=== PATIENT | female | born 1960 | race African-American/Black ===

== ENCOUNTER 2020-09-08 19:28 | Observation (INO) ==
[2020-09-08 19:58] LABS: Basophils % 0.7 % (0.0-0.8); Eosinophils % 0.7 % (0.00-10.9); Hematocrit 40.3 VOL% (35.7-47.0); Hemoglobin 13.2 GM/DL (12.0-16.0); Immature Granulocytes % 0.2 %; Immature Granulocytes Absolute 0.01 #; Lymphocytes # 1.5 10*3/uL (1.4-4.0); Lymphocytes % 34.4 % (21.3-54.2); Mean Corpuscular HGB Conc 32.8 GM/DL (32-36); Mean Corpuscular Volume 88.4 FL (87-102); Monocytes # 0.5 10*3/uL (0.11-0.8); Monocytes % 10.9 % (1.7-12.7); Neutrophils % 53.1 % (38.7-73.9); Platelet Count 219 T/CUMM (130-400); Red Blood Count 4.56 MC/CUMM (3.8-5.5); Red Cell Distribution Width 14.8 % (9.3-17.3); White Blood Count 4.4 T/CUMM (4-12)
[2020-09-08 20:08] LABS: PT Patient Result 10.6 SECS (9.8-11.9); Partial Thromboplastin Time 30.6 SECS (23.9-33.8)
[2020-09-08] MEDS ORDERED: ONDANSETRON 4 MG/2 ML VIAL IV ONE (20:14)
[2020-09-08] MEDS ORDERED: cloNIDine 0.1 MG TABLET PO STA (20:14)
[2020-09-08] MEDS ORDERED: MORPHINE 4 MG/1 ML VIAL IV STA (20:14)
[2020-09-08 20:26] LABS: Albumin 2.2 G/DL (3.4-5.0); Bilirubin,Total 0.4 MG/DL (0.2-1.0); Calcium 8.4 MG/DL (8.5-10.1); Osmolality,Calculated 286.1 MOS/KG (273-304); Potassium 3.6 MMOL/L (3.5-5.1); Total Protein 6.5 G/DL (6.4-8.3)
[2020-09-08] MEDS ORDERED: niCARdipine INJ 25 MG in SODIUM CHLORIDE 0.9% 240 ML IV PRN (21:12)
[2020-09-08] MEDS ORDERED: HydrOXYzine PAMOATE 25 MG CAPSULE PO PRN (22:18)
[2020-09-08] MEDS ORDERED: ACETAMINOPHEN 500 MG TABLET PO STA (22:51)
[2020-09-08] MEDS ORDERED: carvediloL 12.5 MG TABLET PO SCH (23:00)
[2020-09-08] MEDS ORDERED: DOCUSATE SODIUM 100 MG CAPSULE PO PRN (23:19)
[2020-09-08] MEDS ORDERED: ACETAMINOPHEN 325 MG TABLET PO PRN (23:19)
[2020-09-08] MEDS ORDERED: DEXTROSE 50% 25 GM/50 ML VIAL IV PRN ×2 (23:19)
[2020-09-08] MEDS ORDERED: hydrALAZINE 20 MG/1 ML VIAL IV PRN (23:19)
[2020-09-08] MEDS ORDERED: ONDANSETRON 4 MG/2 ML VIAL IV PRN (23:19)
[2020-09-08] MEDS ORDERED: GLUCAGON 1 MG VIAL IM PRN ×2 (23:19)
[2020-09-09] MEDS: ASPIRIN 325 MG TABLET PO SCH ×3 (01:17→21:20)
[2020-09-09] MEDS: GABAPENTIN 300 MG CAPSULE PO SCH ×3 (01:17→21:20)
[2020-09-09] MEDS: glipiZIDE 10 MG TABLET PO SCH ×3 (01:17→21:20)
[2020-09-09 05:51] LABS: Eosinophils # 0.1 10*3/uL (0.0-0.87); Eosinophils % 2.6 % (0.00-10.9); Hematocrit 40.1 VOL% (35.7-47.0); Hemoglobin 13.1 GM/DL (12.0-16.0); Immature Granulocytes % 0.2 %; Immature Granulocytes Absolute 0.01 #; Lymphocytes # 2.2 10*3/uL (1.4-4.0); Lymphocytes % 51.9 % (21.3-54.2); Mean Corpuscular HGB Conc 32.7 GM/DL (32-36); Mean Corpuscular Volume 90.1 FL (87-102); Mean Platelet Volume 10.5 FL (9.6-12.0); Monocytes # 0.6 10*3/uL (0.11-0.8); Monocytes % 14.8 % (1.7-12.7); Neutrophils % 29.5 % (38.7-73.9); Platelet Count 202 T/CUMM (130-400); Red Blood Count 4.45 MC/CUMM (3.8-5.5); Red Cell Distribution Width 14.7 % (9.3-17.3); White Blood Count 4.2 T/CUMM (4-12)
[2020-09-09 06:09] LABS: Calcium 8.5 MG/DL (8.5-10.1); Potassium 3.3 MMOL/L (3.5-5.1)
[2020-09-09 06:32] LABS: Band Neutrophils 1 % (0-10); Eosinophils 1 % (0-10); Lymphocytes 48 % (20-55); Platelet Estimate Normal; Total Cells Counted 100
[2020-09-09] MEDS: INSULIN LISPRO 100 UNIT/ML SUBCUT SCH ×4 (08:47→21:20)
[2020-09-09] MEDS ORDERED: amLODIPine 5 MG TABLET PO SCH (09:00)
[2020-09-09] MEDS ORDERED: hydroCHLOROthiazide 25 MG TABLET PO SCH (09:00)
[2020-09-09] MEDS ORDERED: POTASSIUM CHLORIDE 20 MEQ TABLET PO PRN (09:04)
[2020-09-09] MEDS: ENOXAPARIN 40 MG/0.4 ML SYRINGE SUBCUT SCH (10:22)
[2020-09-09] MEDS: MONTELUKAST 10 MG TABLET PO SCH (10:23)
[2020-09-09] MEDS: SENNA 8.6 MG TABLET PO SCH (10:23)
[2020-09-09] MEDS: OMEGA DHA EPA FISH OIL PO SCH (10:26)
[2020-09-09] MEDS ORDERED: LACTATED RINGERS 1,000 ML IV SCH (13:00)
[2020-09-09] MEDS: hydrALAZINE 20 MG/1 ML VIAL IV PRN (16:40)
[2020-09-10] MEDS: ENOXAPARIN 40 MG/0.4 ML SYRINGE SUBCUT SCH (09:26)
[2020-09-10] MEDS: GABAPENTIN 300 MG CAPSULE PO SCH ×2 (09:27→20:44)
[2020-09-10] MEDS: MONTELUKAST 10 MG TABLET PO SCH (09:27)
[2020-09-10] MEDS: ASPIRIN 325 MG TABLET PO SCH ×2 (09:27→20:44)
[2020-09-10] MEDS: amLODIPine 10 MG TABLET PO SCH (09:27)
[2020-09-10] MEDS: SENNA 8.6 MG TABLET PO SCH (09:29)
[2020-09-10] MEDS: OMEGA DHA EPA FISH OIL PO SCH (09:29)
[2020-09-10] MEDS: glipiZIDE 10 MG TABLET PO SCH ×2 (09:29→20:44)
[2020-09-10] MEDS: INSULIN LISPRO 100 UNIT/ML SUBCUT SCH ×4 (09:29→20:43)
[2020-09-10] MEDS ORDERED: DEXT 5% NACL 0.9% KCL 40 MEQ 40 MEQ/1,000 ML BAG IV SCH (10:00)
[2020-09-10] MEDS: hydrALAZINE 20 MG/1 ML VIAL IV PRN (15:23)
[2020-09-10] MEDS: DEXT 5% NACL 0.9% KCL 40 MEQ 40 MEQ/1,000 ML BAG IV SCH (20:45)
[2020-09-11 05:07] LABS: Basophils % 0.8 % (0.0-0.8); Eosinophils # 0.1 10*3/uL (0.0-0.87); Eosinophils % 2.1 % (0.00-10.9); Hematocrit 39.5 VOL% (35.7-47.0); Hemoglobin 12.8 GM/DL (12.0-16.0); Lymphocytes # 2.1 10*3/uL (1.4-4.0); Lymphocytes % 45.4 % (21.3-54.2); Mean Corpuscular HGB Conc 32.4 GM/DL (32-36); Mean Corpuscular Volume 89.6 FL (87-102); Mean Platelet Volume 10.6 FL (9.6-12.0); Monocytes # 0.5 10*3/uL (0.11-0.8); Neutrophils % 40.7 % (38.7-73.9); Platelet Count 201 T/CUMM (130-400); Red Blood Count 4.41 MC/CUMM (3.8-5.5); Red Cell Distribution Width 14.6 % (9.3-17.3); White Blood Count 4.7 T/CUMM (4-12)
[2020-09-11 05:25] LABS: Calcium 8.3 MG/DL (8.5-10.1); Osmolality,Calculated 293.7 MOS/KG (273-304); Potassium 3.2 MMOL/L (3.5-5.1)
[2020-09-11] MEDS: amLODIPine 10 MG TABLET PO SCH (08:35)
[2020-09-11] MEDS: ENOXAPARIN 40 MG/0.4 ML SYRINGE SUBCUT SCH (08:35)
[2020-09-11] MEDS: GABAPENTIN 300 MG CAPSULE PO SCH ×2 (08:35→22:00)
[2020-09-11] MEDS: glipiZIDE 10 MG TABLET PO SCH (08:36)
[2020-09-11] MEDS: SENNA 8.6 MG TABLET PO SCH (08:36)
[2020-09-11] MEDS: MONTELUKAST 10 MG TABLET PO SCH (08:36)
[2020-09-11] MEDS: INSULIN LISPRO 100 UNIT/ML SUBCUT SCH ×4 (08:36→22:29)
[2020-09-11] MEDS: POTASSIUM CHLORIDE 20 MEQ TABLET PO PRN ×5 (08:37→16:28)
[2020-09-11] MEDS: ASPIRIN 325 MG TABLET PO SCH ×2 (08:37→22:00)
[2020-09-11] MEDS: OMEGA DHA EPA FISH OIL PO SCH (09:48)
[2020-09-11] MEDS: FAMOTIDINE 20 MG TABLET PO SCH ×2 (11:52→22:00)
[2020-09-11] MEDS: ASCORBIC ACID 500 MG TABLET PO SCH ×2 (11:52→22:00)
[2020-09-11] MEDS: CHOLECALCIFEROL 1,000 UNIT TABLET PO SCH (11:53)
[2020-09-11] MEDS: ZINC GLUCONATE 50 MG TABLET PO SCH (11:53)
[2020-09-11] MEDS: DEXT 5% NACL 0.9% KCL 40 MEQ 40 MEQ/1,000 ML BAG IV SCH ×2 (14:04→14:05)
[2020-09-11] MEDS: hydrALAZINE 20 MG/1 ML VIAL IV PRN (14:41)
[2020-09-11 17:16] LABS: Bacteria,Urine Moderate /HPF (Few); Bilirubin,Urine Negative (Negative); Blood, Urine Negative (Negative); Glucose,Urine (UA) 50 mg/dL (Negative); Hyaline Casts,Urine 8 /LPF (0-3); Ketones,Urine Negative (Negative); Mucus,Urine Occasional /LPF (Occasional); Nitrite,Urine Negative (Negative); Protein,Urine >=500 MG/DL; RBC,Urine 2 /HPF (0-4); Squamous Epithelial Cell,Urine Few /HPF (0-10); Urine Appearance CLOUDY (Clear); Urine Color Yellow (Yellow); Urine Specific Gravity 1.011 (1.001-1.035); Urine Urobilinogen < 2.0 EU/DL (0.2-1.0); WBC,Urine 3 /HPF (0-6)
[2020-09-12] MEDS: DEXT 5% NACL 0.9% KCL 40 MEQ 40 MEQ/1,000 ML BAG IV SCH (01:28)
[2020-09-12] MEDS: hydrALAZINE 20 MG/1 ML VIAL IV PRN ×2 (01:53→04:51)
[2020-09-12] MEDS: ENOXAPARIN 40 MG/0.4 ML SYRINGE SUBCUT SCH (08:29)
[2020-09-12] MEDS: FAMOTIDINE 20 MG TABLET PO SCH (08:30)
[2020-09-12] MEDS: MONTELUKAST 10 MG TABLET PO SCH (08:30)
[2020-09-12] MEDS: ZINC GLUCONATE 50 MG TABLET PO SCH (08:30)
[2020-09-12] MEDS: GABAPENTIN 300 MG CAPSULE PO SCH (08:30)
[2020-09-12] MEDS: CHOLECALCIFEROL 1,000 UNIT TABLET PO SCH (08:30)
[2020-09-12] MEDS: ASPIRIN 325 MG TABLET PO SCH (08:30)
[2020-09-12] MEDS: amLODIPine 10 MG TABLET PO SCH (08:30)
[2020-09-12] MEDS: SENNA 8.6 MG TABLET PO SCH (08:30)
[2020-09-12] MEDS: OMEGA DHA EPA FISH OIL PO SCH (08:31)
[2020-09-12] MEDS: ASCORBIC ACID 500 MG TABLET PO SCH (08:31)
[2020-09-12] MEDS: INSULIN LISPRO 100 UNIT/ML SUBCUT SCH ×2 (09:20→12:02)
[2020-09-12 09:53] LABS: Calcium 8.6 MG/DL (8.5-10.1); Osmolality,Calculated 298.7 MOS/KG (273-304); Potassium 4.4 MMOL/L (3.5-5.1)
[2020-09-12] MEDS ORDERED: SODIUM CHLORIDE 0.45% 1,000 ML IV SCH (10:30)
[2020-09-12 11:54] VITALS: BP 191/84
[2020-09-12] MEDS ORDERED: POTASSIUM CHLORIDE IV SCH (15:00)
[2020-09-12] MEDS ORDERED: NACL IV SCH (15:00)
[2020-09-12] MEDS ORDERED: DEXTROSE IV SCH (15:00)
== END 2020-09-12 14:16 | disposition home health service (06) ==
LOC: EDUNIT# → EDBD → N.EDINP 19:28 → N.ED 19:28 → SUATTDRO 22:17 → N.EDINP 23:27 → N.3E 23:38 → N.2E 09-09 11:03
PROVIDERS: ADMIT Internal Medicine; ATTEND Internal Medicine

== ENCOUNTER 2020-09-30 11:43 | Inpatient (IN) ==
[2020-09-30 12:36] LABS: Basophils % 0.3 % (0.0-0.8); Eosinophils # 0.1 10*3/uL (0.0-0.87); Eosinophils % 1.4 % (0.00-10.9); Hematocrit 34.4 VOL% (35.7-47.0); Hemoglobin 11.3 GM/DL (12.0-16.0); Immature Granulocytes % 0.7 %; Immature Granulocytes Absolute 0.05 #; Lymphocytes # 1.1 10*3/uL (1.4-4.0); Lymphocytes % 15.7 % (21.3-54.2); Mean Corpuscular HGB Conc 32.8 GM/DL (32-36); Mean Corpuscular Volume 89.4 FL (87-102); Mean Platelet Volume 10.4 FL (9.6-12.0); Monocytes % 6.3 % (1.7-12.7); Neutrophils % 75.6 % (38.7-73.9); Platelet Count 298 T/CUMM (130-400); Red Blood Count 3.85 MC/CUMM (3.8-5.5); Red Cell Distribution Width 14.6 % (9.3-17.3)
[2020-09-30 12:47] LABS: INR 1.1; PT Patient Result 11.4 SECS (9.8-11.9); Partial Thromboplastin Time 31.3 SECS (23.9-33.8)
[2020-09-30 12:54] LABS: Alanine Aminotransferase 17 U/L (13-56); Albumin 2.1 G/DL (3.4-5.0); Alkaline Phosphatase 64 U/L (45-117); Aspartate Amino Transferase 26 U/L (0-37); Bilirubin,Total < 0.39 MG/DL (0.2-1.0); Blood Urea Nitrogen 47 MG/DL (7-18); Calcium 8.9 MG/DL (8.5-10.1); Carbon Dioxide 27 MMOL/L (21-32); Estimated Glom Filtration Rate 28 ML/MIN; Glucose 131 MG/DL (74-106); Osmolality,Calculated 292.4 MOS/KG (273-304); Potassium 3.9 MMOL/L (3.5-5.1); Sodium 140 MMOL/L (136-145); Total Protein 6.7 G/DL (6.4-8.3)
[2020-09-30] MEDS ORDERED: ONDANSETRON 4 MG/2 ML VIAL IV PRN (13:59)
[2020-09-30] MEDS ORDERED: GLUCAGON 1 MG VIAL IM PRN ×2 (13:59→16:18)
[2020-09-30] MEDS ORDERED: DEXTROSE 50% 25 GM/50 ML VIAL IV PRN ×2 (13:59→16:18)
[2020-09-30] MEDS ORDERED: LABETALOL 100 MG/20 ML VIAL IV STA (14:02)
[2020-09-30] MEDS ORDERED: LABETALOL 100 MG/20 ML VIAL IV ONE (14:03)
[2020-09-30 16:42] LABS: Bacteria,Urine Occasional /HPF (Few); Bilirubin,Urine Negative (Negative); Blood, Urine Negative (Negative); Glucose,Urine (UA) Negative (Negative); Hyaline Casts,Urine 46 /LPF (0-3); Ketones,Urine Negative (Negative); Mucus,Urine Occasional /LPF (Occasional); Nitrite,Urine Negative (Negative); Protein,Urine >=500 MG/DL; RBC,Urine 1 /HPF (0-4); Squamous Epithelial Cell,Urine Occasional /HPF (0-10); Urine Appearance CLOUDY (Clear); Urine Color Yellow (Yellow); Urine Specific Gravity 1.013 (1.001-1.035); Urine Urobilinogen < 2.0 EU/DL (0.2-1.0); WBC,Urine 17 /HPF (0-6)
[2020-09-30] MEDS: SODIUM CHLORIDE 0.45% 1,000 ML IV SCH (16:44)
[2020-09-30] MEDS: INSULIN LISPRO 100 UNIT/ML SUBCUT SCH (18:15)
[2020-09-30] MEDS: HEPARIN 5,000 UNIT/1 ML VIAL SUBCUT SCH (22:21)
[2020-10-01] MEDS: INSULIN LISPRO 100 UNIT/ML SUBCUT SCH ×5 (01:09→23:16)
[2020-10-01 04:39] LABS: Basophils # 0.1 10*3/uL (0.0-0.2); Basophils % 0.5 % (0.0-0.8); Eosinophils # 0.1 10*3/uL (0.0-0.87); Hematocrit 34.3 VOL% (35.7-47.0); Hemoglobin 10.9 GM/DL (12.0-16.0); Immature Granulocytes % 0.3 %; Immature Granulocytes Absolute 0.04 #; Lymphocytes % 16.6 % (21.3-54.2); Mean Corpuscular HGB Conc 31.8 GM/DL (32-36); Mean Platelet Volume 10.4 FL (9.6-12.0); Monocytes % 7.3 % (1.7-12.7); Neutrophils % 74.3 % (38.7-73.9); Platelet Count 265 T/CUMM (130-400); Red Blood Count 3.81 MC/CUMM (3.8-5.5); Red Cell Distribution Width 14.6 % (9.3-17.3); White Blood Count 11.9 T/CUMM (4-12)
[2020-10-01 05:00] LABS: Calcium 8.7 MG/DL (8.5-10.1); Osmolality,Calculated 291.4 MOS/KG (273-304); Potassium 3.7 MMOL/L (3.5-5.1)
[2020-10-01] MEDS: SODIUM CHLORIDE 0.45% 1,000 ML IV SCH (05:44)
[2020-10-01] MEDS: HEPARIN 5,000 UNIT/1 ML VIAL SUBCUT SCH ×3 (05:46→21:15)
[2020-10-01] MEDS: cefTRIAXone 1,000 MG in SYRINGE 1 EACH IV SCH (09:35)
[2020-10-02] MEDS: SODIUM CHLORIDE 0.45% 1,000 ML IV SCH ×2 (00:53→15:25)
[2020-10-02] MEDS: INSULIN LISPRO 100 UNIT/ML SUBCUT SCH ×3 (05:45→18:21)
[2020-10-02] MEDS: HEPARIN 5,000 UNIT/1 ML VIAL SUBCUT SCH (05:46)
[2020-10-02 05:56] LABS: Basophils % 0.4 % (0.0-0.8); Eosinophils # 0.1 10*3/uL (0.0-0.87); Eosinophils % 1.4 % (0.00-10.9); Hematocrit 38.8 VOL% (35.7-47.0); Hemoglobin 11.8 GM/DL (12.0-16.0); Immature Granulocytes % 0.5 %; Immature Granulocytes Absolute 0.04 #; Lymphocytes # 1.1 10*3/uL (1.4-4.0); Lymphocytes % 14.1 % (21.3-54.2); Mean Corpuscular HGB Conc 30.4 GM/DL (32-36); Mean Corpuscular Volume 92.6 FL (87-102); Mean Platelet Volume 10.7 FL (9.6-12.0); Monocytes % 4.8 % (1.7-12.7); Neutrophils % 78.8 % (38.7-73.9); Platelet Count 286 T/CUMM (130-400); Red Blood Count 4.19 MC/CUMM (3.8-5.5); Red Cell Distribution Width 14.1 % (9.3-17.3)
[2020-10-02 06:09] LABS: Calcium 9.4 MG/DL (8.5-10.1); Potassium 3.7 MMOL/L (3.5-5.1)
[2020-10-02] MEDS: cefTRIAXone 1,000 MG in SYRINGE 1 EACH IV SCH (08:46)
[2020-10-02] MEDS ORDERED: CLOPIDOGREL 75 MG TABLET PO SCH (09:00)
[2020-10-03] MEDS: INSULIN LISPRO 100 UNIT/ML SUBCUT SCH ×4 (00:04→18:17)
[2020-10-03] MEDS: SODIUM CHLORIDE 0.45% 1,000 ML IV SCH ×2 (03:15→16:35)
[2020-10-03 06:57] LABS: Basophils % 0.6 % (0.0-0.8); Eosinophils # 0.2 10*3/uL (0.0-0.87); Eosinophils % 3.6 % (0.00-10.9); Hematocrit 36.2 VOL% (35.7-47.0); Hemoglobin 11.2 GM/DL (12.0-16.0); Immature Granulocytes % 0.2 %; Immature Granulocytes Absolute 0.01 #; Lymphocytes # 1.7 10*3/uL (1.4-4.0); Lymphocytes % 26.6 % (21.3-54.2); Mean Corpuscular HGB Conc 30.9 GM/DL (32-36); Mean Corpuscular Volume 93.3 FL (87-102); Mean Platelet Volume 10.5 FL (9.6-12.0); Monocytes % 9.5 % (1.7-12.7); Neutrophils % 59.5 % (38.7-73.9); Platelet Count 259 T/CUMM (130-400); Red Blood Count 3.88 MC/CUMM (3.8-5.5); Red Cell Distribution Width 14.2 % (9.3-17.3); White Blood Count 6.4 T/CUMM (4-12)
[2020-10-03 07:14] LABS: Calcium 9.1 MG/DL (8.5-10.1); Osmolality,Calculated 291.1 MOS/KG (273-304); Potassium 3.7 MMOL/L (3.5-5.1)
[2020-10-03] MEDS ORDERED: LACTATED RINGERS 1,000 ML IV SCH (08:00)
[2020-10-03] MEDS: cefTRIAXone 1,000 MG in SYRINGE 1 EACH IV SCH (10:08)
[2020-10-03] MEDS ORDERED: carvediloL 12.5 MG TABLET PO SCH (13:30)
[2020-10-03] MEDS ORDERED: ALBUTEROL 2.5 MG/3 ML NEB RESP TX PRN (14:03)
[2020-10-03] MEDS ORDERED: FAMOTIDINE 20 MG TABLET PO SCH (21:00)
[2020-10-03] MEDS: hydrALAZINE 20 MG/1 ML VIAL IV PRN (21:16)
[2020-10-04] MEDS: INSULIN LISPRO 100 UNIT/ML SUBCUT SCH ×4 (00:23→18:16)
[2020-10-04] MEDS: SODIUM CHLORIDE 0.45% 1,000 ML IV SCH ×2 (04:50→20:58)
[2020-10-04 05:21] LABS: Basophils % 0.4 % (0.0-0.8); Eosinophils # 0.2 10*3/uL (0.0-0.87); Eosinophils % 4.3 % (0.00-10.9); Hematocrit 34.6 VOL% (35.7-47.0); Immature Granulocytes % 0.4 %; Immature Granulocytes Absolute 0.02 #; Lymphocytes # 1.5 10*3/uL (1.4-4.0); Lymphocytes % 27.5 % (21.3-54.2); Mean Corpuscular HGB Conc 31.8 GM/DL (32-36); Mean Corpuscular Volume 90.6 FL (87-102); Mean Platelet Volume 10.7 FL (9.6-12.0); Monocytes % 10.2 % (1.7-12.7); Neutrophils % 57.2 % (38.7-73.9); Platelet Count 220 T/CUMM (130-400); Red Blood Count 3.82 MC/CUMM (3.8-5.5); Red Cell Distribution Width 14.2 % (9.3-17.3); White Blood Count 5.6 T/CUMM (4-12)
[2020-10-04 05:31] LABS: PT Patient Result 10.9 SECS (9.8-11.9)
[2020-10-04 05:42] LABS: Calcium 9.1 MG/DL (8.5-10.1); Osmolality,Calculated 289.1 MOS/KG (273-304); Potassium 3.5 MMOL/L (3.5-5.1)
[2020-10-04] MEDS ORDERED: LACTATED RINGERS 1,000 ML IV SCH (08:00)
[2020-10-04] MEDS ORDERED: ETOMIDATE 20 MG/10 ML VIAL IV ONE (08:57)
[2020-10-04] MEDS ORDERED: LIDOCAINE 2% 5 ML VIAL ONE (08:57)
[2020-10-04] MEDS ORDERED: lisinopriL 20 MG TABLET PO SCH (09:00)
[2020-10-04] MEDS ORDERED: SENNA 8.6 MG TABLET PO SCH (09:00)
[2020-10-04] MEDS ORDERED: propofoL 200 MG/20 ML VIAL IV ONE (09:05)
[2020-10-04] MEDS: CETIRIZINE 10 MG TABLET PO SCH (14:28)
[2020-10-05] MEDS: INSULIN LISPRO 100 UNIT/ML SUBCUT SCH ×4 (00:19→19:05)
[2020-10-05] MEDS ORDERED: LIDOCAINE MPF 1% /EPI 30 ML VIAL ONE (06:34)
[2020-10-05] MEDS ORDERED: BUPIVACAINE MPF 0.25% 30 ML VIAL ONE (06:34)
[2020-10-05] MEDS ORDERED: LIDOCAINE 2% 5 ML VIAL ONE (06:53)
[2020-10-05] MEDS ORDERED: propofoL 200 MG/20 ML VIAL IV ONE (06:53)
[2020-10-05] MEDS ORDERED: fentaNYL 100 MCG/2 ML VIAL ONE (06:53)
[2020-10-05] MEDS ORDERED: DEXAMETHASONE 4 MG/1 ML VIAL ONE (06:54)
[2020-10-05] MEDS ORDERED: SEVOFLURANE 1 UNIT/15 MINUTE INH ONE ×4 (06:54→08:30)
[2020-10-05] MEDS ORDERED: ONDANSETRON 4 MG/2 ML VIAL ONE (06:54)
[2020-10-05] MEDS ORDERED: ROCURONIUM 50 MG/5 ML VIAL IV ONE (07:00)
[2020-10-05] MEDS ORDERED: SUCCINYLCHOLINE 200 MG/10 ML VIAL ONE (07:00)
[2020-10-05] MEDS ORDERED: MIDAZOLAM 2 MG/2 ML VIAL ONE (07:12)
[2020-10-05] MEDS ORDERED: LABETALOL 20 MG/4 ML SYRINGE IV ONE (08:25)
[2020-10-05] MEDS ORDERED: hydrALAZINE 20 MG/1 ML VIAL IV ONE (08:40)
[2020-10-05] MEDS: HYDROmorphone 2 MG/1 ML VIAL IV PRN ×2 (08:41→08:46)
[2020-10-05] MEDS ORDERED: HYDROmorphone 2 MG/1 ML VIAL ONE (08:41)
[2020-10-05] MEDS ORDERED: MORPHINE 4 MG/1 ML VIAL IV PRN (12:09)
[2020-10-05] MEDS: CETIRIZINE 10 MG TABLET PO SCH (14:15)
[2020-10-05] MEDS: SODIUM CHLORIDE 0.45% 1,000 ML IV SCH (18:03)
[2020-10-06] MEDS: INSULIN LISPRO 100 UNIT/ML SUBCUT SCH ×4 (00:20→19:17)
[2020-10-06] MEDS: SODIUM CHLORIDE 0.45% 1,000 ML IV SCH ×3 (05:30→17:38)
[2020-10-06 07:24] LABS: Basophils % 0.2 % (0.0-0.8); Eosinophils % 0.4 % (0.00-10.9); Hematocrit 32.7 VOL% (35.7-47.0); Hemoglobin 10.6 GM/DL (12.0-16.0); Immature Granulocytes % 0.3 %; Immature Granulocytes Absolute 0.03 #; Lymphocytes # 1.6 10*3/uL (1.4-4.0); Lymphocytes % 17.3 % (21.3-54.2); Mean Corpuscular HGB Conc 32.4 GM/DL (32-36); Mean Corpuscular Volume 90.1 FL (87-102); Mean Platelet Volume 10.8 FL (9.6-12.0); Monocytes % 9.4 % (1.7-12.7); Neutrophils % 72.4 % (38.7-73.9); Platelet Count 178 T/CUMM (130-400); Red Blood Count 3.63 MC/CUMM (3.8-5.5); Red Cell Distribution Width 14.5 % (9.3-17.3); White Blood Count 9.1 T/CUMM (4-12)
[2020-10-06 08:06] LABS: Potassium 4.5 MMOL/L (3.5-5.1)
[2020-10-06] MEDS: carvediloL 12.5 MG TABLET PO SCH ×2 (09:26→20:41)
[2020-10-06] MEDS: CLOPIDOGREL 75 MG TABLET PO SCH (09:27)
[2020-10-06] MEDS: CETIRIZINE 10 MG TABLET PO SCH (09:27)
[2020-10-06] MEDS: lisinopriL 20 MG TABLET PO SCH (09:27)
[2020-10-07] MEDS: INSULIN LISPRO 100 UNIT/ML SUBCUT SCH ×5 (00:04→23:26)
[2020-10-07 05:05] LABS: Basophils % 0.5 % (0.0-0.8); Eosinophils # 0.3 10*3/uL (0.0-0.87); Eosinophils % 3.2 % (0.00-10.9); Immature Granulocytes % 0.2 %; Immature Granulocytes Absolute 0.02 #; Lymphocytes # 1.3 10*3/uL (1.4-4.0); Lymphocytes % 15.9 % (21.3-54.2); Mean Corpuscular HGB Conc 31.3 GM/DL (32-36); Mean Corpuscular Volume 91.7 FL (87-102); Monocytes % 7.6 % (1.7-12.7); Neutrophils % 72.6 % (38.7-73.9); Platelet Count 167 T/CUMM (130-400); Red Blood Count 3.49 MC/CUMM (3.8-5.5); Red Cell Distribution Width 14.2 % (9.3-17.3); White Blood Count 8.3 T/CUMM (4-12)
[2020-10-07 05:10] LABS: Calcium 8.8 MG/DL (8.5-10.1); Potassium 3.2 MMOL/L (3.5-5.1)
[2020-10-07] MEDS: SODIUM CHLORIDE 0.45% 1,000 ML IV SCH (09:42)
[2020-10-07] MEDS ORDERED: lisinopriL 20 MG TABLET PO SCH (12:38)
[2020-10-07] MEDS ORDERED: MAGNESIUM SULF RIDER 2 GM in PREMIX 1 EACH IV PRN (12:48)
[2020-10-07] MEDS ORDERED: MAGNESIUM SULF RIDER 4 GM in PREMIX 1 EACH IV PRN (12:48)
[2020-10-07] MEDS: CETIRIZINE 10 MG TABLET PO SCH (15:35)
[2020-10-07] MEDS: lisinopriL 20 MG TABLET PO SCH (15:35)
[2020-10-07] MEDS: CLOPIDOGREL 75 MG TABLET PO SCH (18:01)
[2020-10-07] MEDS: carvediloL 12.5 MG TABLET PO SCH ×2 (18:01→20:41)
[2020-10-07] MEDS: POTASSIUM CHLORIDE 20 MEQ/15 ML UDCUP PER TUBE PRN ×3 (18:01→22:19)
[2020-10-07] MEDS: ASPIRIN CHEW 81 MG TABLET PO SCH (18:01)
[2020-10-07] MEDS: levETIRAcetam LIQUID 100 MG/ML 30 ML/BOTTLE PER TUBE SCH (20:39)
[2020-10-07] MEDS: hydrALAZINE 20 MG/1 ML VIAL IV PRN (20:43)
[2020-10-08] MEDS: POTASSIUM CHLORIDE 20 MEQ/15 ML UDCUP PER TUBE PRN (00:05)
[2020-10-08 05:39] LABS: Basophils % 0.4 % (0.0-0.8); Eosinophils # 0.4 10*3/uL (0.0-0.87); Eosinophils % 4.7 % (0.00-10.9); Hematocrit 32.7 VOL% (35.7-47.0); Hemoglobin 10.3 GM/DL (12.0-16.0); Immature Granulocytes % 0.7 %; Immature Granulocytes Absolute 0.06 #; Lymphocytes # 1.8 10*3/uL (1.4-4.0); Lymphocytes % 21.6 % (21.3-54.2); Mean Corpuscular HGB Conc 31.5 GM/DL (32-36); Mean Corpuscular Volume 90.6 FL (87-102); Mean Platelet Volume 11.1 FL (9.6-12.0); Monocytes % 8.3 % (1.7-12.7); Neutrophils % 64.3 % (38.7-73.9); Platelet Count 163 T/CUMM (130-400); Red Blood Count 3.61 MC/CUMM (3.8-5.5); Red Cell Distribution Width 14.5 % (9.3-17.3); White Blood Count 8.3 T/CUMM (4-12)
[2020-10-08 05:56] LABS: Calcium 8.7 MG/DL (8.5-10.1); Calcium 8.8 MG/DL (8.5-10.1); Osmolality,Calculated 286.4 MOS/KG (273-304); Osmolality,Calculated 288.3 MOS/KG (273-304); Potassium 3.8 MMOL/L (3.5-5.1)
[2020-10-08 05:59] LABS: Risk Ratio 3.74; VLDL CHOLESTEROL 30.4 MG/DL
[2020-10-08] MEDS: INSULIN LISPRO 100 UNIT/ML SUBCUT SCH ×2 (06:11→11:36)
[2020-10-08] MEDS ORDERED: amLODIPine 10 MG TABLET PER TUBE SCH (09:00)
[2020-10-08] MEDS ORDERED: MONTELUKAST 10 MG TABLET PER TUBE SCH (09:00)
[2020-10-08] MEDS: carvediloL 12.5 MG TABLET PO SCH (09:07)
[2020-10-08] MEDS: ASPIRIN CHEW 81 MG TABLET PO SCH (09:07)
[2020-10-08] MEDS: CLOPIDOGREL 75 MG TABLET PO SCH (09:07)
[2020-10-08] MEDS: levETIRAcetam LIQUID 100 MG/ML 30 ML/BOTTLE PER TUBE SCH (09:10)
[2020-10-08 15:54] VITALS: BP 152/73
== END 2020-10-08 19:42 | disposition home health service (06) | DRG 41 ==
LOC: EDBD → EDUNIT# → N.ED 11:43 → N.EDINP 11:43 → N.5E 19:01 → SUATTDRO 10-02 09:11
PROVIDERS: ADMIT Internal Medicine; ATTEND Internal Medicine

== ENCOUNTER 2020-12-03 07:14 | Inpatient (IN) ==
[2020-12-03] MEDS ORDERED: ONDANSETRON 4 MG/2 ML VIAL IV STA (07:52)
[2020-12-03 08:24] LABS: Alanine Aminotransferase 53 U/L (13-56); Albumin 2.8 G/DL (3.4-5.0); Alkaline Phosphatase 97 U/L (45-117); Aspartate Amino Transferase 26 U/L (0-37); Bilirubin,Total < 0.39 MG/DL (0.2-1.0); Blood Urea Nitrogen 59 MG/DL (7-18); Carbon Dioxide 13 MMOL/L (21-32); Estimated Glom Filtration Rate 9 ML/MIN; Glucose 134 MG/DL (74-106); Potassium 4.9 MMOL/L (3.5-5.1); Sodium 136 MMOL/L (136-145); Total Protein 7.9 G/DL (6.4-8.2)
[2020-12-03 08:35] LABS: Bacteria,Urine Moderate /HPF (Few); Bilirubin,Urine Negative (Negative); Blood, Urine Negative (Negative); Glucose,Urine (UA) Negative (Negative); Hyaline Casts,Urine 15 /LPF (0-3); Ketones,Urine Negative (Negative); Mucus,Urine Moderate /LPF (Occasional); Nitrite,Urine Negative (Negative); Protein,Urine >=500 MG/DL; RBC,Urine 2 /HPF (0-4); Squamous Epithelial Cell,Urine Occasional /HPF (0-10); Urine Appearance CLOUDY (Clear); Urine Color Amber (Yellow); Urine Specific Gravity 1.017 (1.001-1.035); Urine Urobilinogen < 2.0 EU/DL (0.2-1.0); WBC,Urine 6 /HPF (0-6)
[2020-12-03 08:45] LABS: Basophils % 0.3 % (0.0-0.8); Eosinophils # 0.2 10*3/uL (0.0-0.87); Eosinophils % 2.6 % (0.00-10.9); Hematocrit 38.1 VOL% (35.7-47.0); Hemoglobin 12.1 GM/DL (12.0-16.0); Immature Granulocytes % 0.7 %; Immature Granulocytes Absolute 0.06 #; Lymphocytes # 2.4 10*3/uL (1.4-4.0); Mean Corpuscular HGB Conc 31.8 GM/DL (32-36); Mean Corpuscular Volume 92.5 FL (87-102); Mean Platelet Volume 9.8 FL (9.6-12.0); Monocytes % 5.5 % (1.7-12.7); Neutrophils % 64.9 % (38.7-73.9); Platelet Count 240 T/CUMM (130-400); Red Blood Count 4.12 MC/CUMM (3.8-5.5); Red Cell Distribution Width 16.4 % (9.3-17.3); White Blood Count 9.1 T/CUMM (4-12)
[2020-12-03] MEDS ORDERED: SODIUM CHLORIDE 0.9% 1,000 ML IV STA (09:14)
[2020-12-03] MEDS ORDERED: GLUCAGON 1 MG VIAL IM PRN (10:13)
[2020-12-03] MEDS ORDERED: DEXTROSE 50% 25 GM/50 ML VIAL IV PRN (10:13)
[2020-12-03] MEDS ORDERED: LACTATED RINGERS 1,000 ML IV SCH (10:30)
[2020-12-03 10:42] LABS: ABG Base Excess -14.2 MMOL/L (-2.5-2.5); ABG HCO3 13.5 MMOL/L (20-26); ABG Oxygen Saturation 98.1 % (95-100); ABG PCO2 29.1 MM HG (35-48); ABG PH 7.234 (7.35-7.45); ABG TCO2 11.4 MMOL/L (23-27)
[2020-12-03] MEDS ORDERED: SODIUM BICARBONATE 50 MEQ/50 ML VIAL IV ONE (10:59)
[2020-12-03] MEDS ORDERED: INSULIN REGULAR 100 UNIT/ML SUBCUT SCH (11:30)
[2020-12-03] MEDS: cefTRIAXone 1,000 MG in SYRINGE 1 EACH IV SCH (12:30)
[2020-12-03] MEDS: metroNIDAZOLE INJ 500 MG in PREMIX 1 EACH IV SCH ×2 (12:40→22:27)
[2020-12-03] MEDS: INSULIN REGULAR 100 UNIT/ML SUBCUT SCH ×2 (12:41→18:10)
[2020-12-03] MEDS: ONDANSETRON 4 MG/2 ML VIAL IV PRN (13:05)
[2020-12-03] MEDS ORDERED: HEPARIN 5,000 UNIT/1 ML VIAL SUBCUT SCH (14:00)
[2020-12-03] MEDS: PANTOPRAZOLE INJ 200 MG in SODIUM CHLORIDE 0.9% 250 ML IV SCH (14:40)
[2020-12-03] MEDS: SODIUM BICARB INJ 100 MEQ in DEXTROSE 5% 1,000 ML IV SCH (19:11)
[2020-12-04] MEDS: INSULIN REGULAR 100 UNIT/ML SUBCUT SCH ×3 (01:30→14:27)
[2020-12-04 05:13] LABS: Basophils % 0.4 % (0.0-0.8); Eosinophils # 0.4 10*3/uL (0.0-0.87); Eosinophils % 5.9 % (0.00-10.9); Hematocrit 30.7 VOL% (35.7-47.0); Hemoglobin 9.9 GM/DL (12.0-16.0); Immature Granulocytes % 0.6 %; Immature Granulocytes Absolute 0.04 #; Lymphocytes # 1.7 10*3/uL (1.4-4.0); Lymphocytes % 23.9 % (21.3-54.2); Mean Corpuscular HGB Conc 32.2 GM/DL (32-36); Mean Corpuscular Volume 90.6 FL (87-102); Mean Platelet Volume 9.7 FL (9.6-12.0); Monocytes % 7.5 % (1.7-12.7); Neutrophils % 61.7 % (38.7-73.9); Platelet Count 207 T/CUMM (130-400); Red Blood Count 3.39 MC/CUMM (3.8-5.5); Red Cell Distribution Width 16.1 % (9.3-17.3); White Blood Count 7.1 T/CUMM (4-12)
[2020-12-04 05:31] LABS: Albumin 2.2 G/DL (3.4-5.0); Bilirubin,Total 0.9 MG/DL (0.2-1.0); Calcium 9.1 MG/DL (8.5-10.1); Total Protein 6.2 G/DL (6.4-8.2)
[2020-12-04] MEDS: metroNIDAZOLE INJ 500 MG in PREMIX 1 EACH IV SCH ×3 (06:12→22:40)
[2020-12-04] MEDS: SODIUM BICARB INJ 100 MEQ in DEXTROSE 5% 1,000 ML IV SCH ×3 (06:15→22:40)
[2020-12-04] MEDS ORDERED: PANTOPRAZOLE 40 MG TABLET PO SCH (09:00)
[2020-12-04] MEDS: cefTRIAXone 1,000 MG in SYRINGE 1 EACH IV SCH (12:24)
[2020-12-04] MEDS: PANTOPRAZOLE INJ 200 MG in SODIUM CHLORIDE 0.9% 250 ML IV SCH (17:58)
[2020-12-05] MEDS: SODIUM BICARB INJ 100 MEQ in DEXTROSE 5% 1,000 ML IV SCH (01:01)
[2020-12-05] MEDS: INSULIN REGULAR 100 UNIT/ML SUBCUT SCH ×5 (02:30→19:04)
[2020-12-05] MEDS: metroNIDAZOLE INJ 500 MG in PREMIX 1 EACH IV SCH ×3 (04:37→22:08)
[2020-12-05 05:12] LABS: Basophils % 0.4 % (0.0-0.8); Eosinophils # 0.4 10*3/uL (0.0-0.87); Eosinophils % 4.8 % (0.00-10.9); Hematocrit 29.8 VOL% (35.7-47.0); Hemoglobin 10.2 GM/DL (12.0-16.0); Immature Granulocytes % 0.4 %; Immature Granulocytes Absolute 0.03 #; Lymphocytes # 1.6 10*3/uL (1.4-4.0); Lymphocytes % 20.7 % (21.3-54.2); Mean Corpuscular HGB Conc 34.2 GM/DL (32-36); Mean Corpuscular Volume 86.9 FL (87-102); Mean Platelet Volume 10.2 FL (9.6-12.0); Neutrophils % 67.7 % (38.7-73.9); Platelet Count 205 T/CUMM (130-400); Red Blood Count 3.43 MC/CUMM (3.8-5.5); Red Cell Distribution Width 15.7 % (9.3-17.3); White Blood Count 7.8 T/CUMM (4-12)
[2020-12-05 05:30] LABS: Calcium 8.8 MG/DL (8.5-10.1); Potassium 3.8 MMOL/L (3.5-5.1)
[2020-12-05] MEDS: cefTRIAXone 1,000 MG in SYRINGE 1 EACH IV SCH (13:53)
[2020-12-05] MEDS: PANTOPRAZOLE INJ 200 MG in SODIUM CHLORIDE 0.9% 250 ML IV SCH (15:24)
[2020-12-05] MEDS: SODIUM BICARB INJ 150 MEQ in DEXTROSE 5% 850 ML IV SCH ×2 (17:20→17:24)
[2020-12-06] MEDS: INSULIN REGULAR 100 UNIT/ML SUBCUT SCH ×4 (00:50→18:50)
[2020-12-06] MEDS: SODIUM BICARB INJ 150 MEQ in DEXTROSE 5% 850 ML IV SCH ×3 (01:48→15:49)
[2020-12-06] MEDS: metroNIDAZOLE INJ 500 MG in PREMIX 1 EACH IV SCH ×3 (05:05→22:10)
[2020-12-06 08:27] LABS: Basophils % 0.2 % (0.0-0.8); Eosinophils # 0.2 10*3/uL (0.0-0.87); Eosinophils % 2.2 % (0.00-10.9); Hematocrit 29.1 VOL% (35.7-47.0); Immature Granulocytes % 0.2 %; Immature Granulocytes Absolute 0.02 #; Lymphocytes # 1.4 10*3/uL (1.4-4.0); Lymphocytes % 16.7 % (21.3-54.2); Mean Corpuscular HGB Conc 34.4 GM/DL (32-36); Mean Corpuscular Volume 85.8 FL (87-102); Mean Platelet Volume 10.2 FL (9.6-12.0); Monocytes % 5.6 % (1.7-12.7); Neutrophils % 75.1 % (38.7-73.9); Platelet Count 201 T/CUMM (130-400); Red Blood Count 3.39 MC/CUMM (3.8-5.5); Red Cell Distribution Width 15.5 % (9.3-17.3); White Blood Count 8.2 T/CUMM (4-12)
[2020-12-06 08:44] LABS: Calcium 8.6 MG/DL (8.5-10.1); Osmolality,Calculated 290.1 MOS/KG (273-304); Potassium 3.1 MMOL/L (3.5-5.1)
[2020-12-06 08:50] LABS: Eosinophils 1 % (0-10); Lymphocytes 20 % (20-55); Segmented Neutrophils 71 % (50-85); Total Cells Counted 100
[2020-12-06 08:51] LABS: Hypochromasia 1+; Microcytosis 1+; Platelet Estimate Normal
[2020-12-06] MEDS: LABETALOL 20 MG/4 ML SYRINGE IV PRN (09:34)
[2020-12-06] MEDS: cefTRIAXone 1,000 MG in SYRINGE 1 EACH IV SCH (11:31)
[2020-12-06] MEDS: hydroCHLOROthiazide 25 MG TABLET PEG SCH (14:09)
[2020-12-06] MEDS: POTASSIUM CHLORIDE 20 MEQ TABLET PO PRN (14:09)
[2020-12-06] MEDS: amLODIPine 10 MG TABLET PEG SCH (14:10)
[2020-12-06] MEDS: carvediloL 12.5 MG TABLET PEG SCH ×2 (14:10→22:00)
[2020-12-07] MEDS: INSULIN REGULAR 100 UNIT/ML SUBCUT SCH ×4 (00:18→18:23)
[2020-12-07] MEDS: SODIUM BICARB INJ 150 MEQ in DEXTROSE 5% 850 ML IV SCH ×3 (00:50→19:54)
[2020-12-07] MEDS: metroNIDAZOLE INJ 500 MG in PREMIX 1 EACH IV SCH ×3 (04:05→21:00)
[2020-12-07 05:47] LABS: Basophils % 0.3 % (0.0-0.8); Eosinophils # 0.3 10*3/uL (0.0-0.87); Eosinophils % 3.7 % (0.00-10.9); Hematocrit 29.4 VOL% (35.7-47.0); Hemoglobin 9.9 GM/DL (12.0-16.0); Immature Granulocytes % 0.6 %; Immature Granulocytes Absolute 0.04 #; Lymphocytes # 1.6 10*3/uL (1.4-4.0); Lymphocytes % 22.5 % (21.3-54.2); Mean Corpuscular HGB Conc 33.7 GM/DL (32-36); Mean Corpuscular Volume 87.2 FL (87-102); Mean Platelet Volume 9.6 FL (9.6-12.0); Monocytes % 8.8 % (1.7-12.7); Neutrophils % 64.1 % (38.7-73.9); Platelet Count 205 T/CUMM (130-400); Red Blood Count 3.37 MC/CUMM (3.8-5.5); Red Cell Distribution Width 15.5 % (9.3-17.3)
[2020-12-07] MEDS: PANTOPRAZOLE INJ 200 MG in SODIUM CHLORIDE 0.9% 250 ML IV SCH ×2 (05:50→16:29)
[2020-12-07 06:05] LABS: Calcium 8.1 MG/DL (8.5-10.1); Osmolality,Calculated 292.8 MOS/KG (273-304); Potassium 2.8 MMOL/L (3.5-5.1)
[2020-12-07] MEDS: POTASSIUM CHLORIDE 20 MEQ TABLET PO PRN ×4 (07:57→14:26)
[2020-12-07] MEDS: amLODIPine 10 MG TABLET PEG SCH (08:01)
[2020-12-07] MEDS: hydroCHLOROthiazide 25 MG TABLET PEG SCH (08:01)
[2020-12-07] MEDS: carvediloL 12.5 MG TABLET PEG SCH ×2 (08:01→21:03)
[2020-12-07] MEDS: cefTRIAXone 1,000 MG in SYRINGE 1 EACH IV SCH (11:40)
[2020-12-08] MEDS: INSULIN REGULAR 100 UNIT/ML SUBCUT SCH ×4 (00:13→18:54)
[2020-12-08] MEDS: metroNIDAZOLE INJ 500 MG in PREMIX 1 EACH IV SCH ×3 (04:45→20:40)
[2020-12-08 05:42] LABS: Basophils % 0.3 % (0.0-0.8); Eosinophils # 0.2 10*3/uL (0.0-0.87); Eosinophils % 2.7 % (0.00-10.9); Hematocrit 30.9 VOL% (35.7-47.0); Hemoglobin 10.5 GM/DL (12.0-16.0); Immature Granulocytes % 0.3 %; Immature Granulocytes Absolute 0.02 #; Lymphocytes # 1.5 10*3/uL (1.4-4.0); Lymphocytes % 21.3 % (21.3-54.2); Mean Corpuscular Volume 86.6 FL (87-102); Mean Platelet Volume 10.1 FL (9.6-12.0); Monocytes % 8.9 % (1.7-12.7); Neutrophils % 66.5 % (38.7-73.9); Platelet Count 228 T/CUMM (130-400); Red Blood Count 3.57 MC/CUMM (3.8-5.5); Red Cell Distribution Width 15.3 % (9.3-17.3); White Blood Count 6.9 T/CUMM (4-12)
[2020-12-08] MEDS: SODIUM BICARB INJ 150 MEQ in DEXTROSE 5% 850 ML IV SCH ×2 (05:45→14:46)
[2020-12-08 06:12] LABS: Calcium 8.1 MG/DL (8.5-10.1); Osmolality,Calculated 289.1 MOS/KG (273-304); Potassium 3.1 MMOL/L (3.5-5.1)
[2020-12-08] MEDS: POTASSIUM CHLORIDE 20 MEQ TABLET PO PRN ×4 (08:04→14:04)
[2020-12-08] MEDS: hydroCHLOROthiazide 25 MG TABLET PEG SCH (08:04)
[2020-12-08] MEDS: carvediloL 12.5 MG TABLET PEG SCH ×2 (08:04→21:58)
[2020-12-08] MEDS: amLODIPine 10 MG TABLET PEG SCH (08:04)
[2020-12-08] MEDS: PANTOPRAZOLE INJ 200 MG in SODIUM CHLORIDE 0.9% 250 ML IV SCH ×2 (08:06→18:54)
[2020-12-08] MEDS: LABETALOL 20 MG/4 ML SYRINGE IV PRN ×2 (09:46→14:45)
[2020-12-08] MEDS: cefTRIAXone 1,000 MG in SYRINGE 1 EACH IV SCH (12:01)
[2020-12-08] MEDS: ONDANSETRON 4 MG/2 ML VIAL IV PRN (14:48)
[2020-12-08 18:28] LABS: ABG Base Excess 15.6 MMOL/L (-2.5-2.5); ABG HCO3 39.5 MMOL/L (20-26); ABG Oxygen Saturation 93.8 % (95-100); ABG PCO2 50.9 MM HG (35-48); ABG PH 7.514 (7.35-7.45); ABG PO2 67.8 MM HG (80-95); Allen Test Positive; Pt O2 Delivery Device Room Air
[2020-12-09] MEDS: INSULIN REGULAR 100 UNIT/ML SUBCUT SCH ×4 (00:18→19:09)
[2020-12-09] MEDS: metroNIDAZOLE INJ 500 MG in PREMIX 1 EACH IV SCH ×3 (04:10→20:50)
[2020-12-09 05:58] LABS: Basophils % 0.3 % (0.0-0.8); Eosinophils # 0.2 10*3/uL (0.0-0.87); Eosinophils % 3.5 % (0.00-10.9); Hematocrit 31.2 VOL% (35.7-47.0); Hemoglobin 10.3 GM/DL (12.0-16.0); Immature Granulocytes % 0.5 %; Immature Granulocytes Absolute 0.03 #; Lymphocytes # 1.6 10*3/uL (1.4-4.0); Lymphocytes % 25.7 % (21.3-54.2); Mean Corpuscular Volume 89.4 FL (87-102); Mean Platelet Volume 10.3 FL (9.6-12.0); Monocytes % 8.5 % (1.7-12.7); Neutrophils % 61.5 % (38.7-73.9); Platelet Count 227 T/CUMM (130-400); Red Blood Count 3.49 MC/CUMM (3.8-5.5); Red Cell Distribution Width 15.4 % (9.3-17.3); White Blood Count 6.4 T/CUMM (4-12)
[2020-12-09 06:16] LABS: Calcium 8.3 MG/DL (8.5-10.1); Potassium 3.4 MMOL/L (3.5-5.1)
[2020-12-09 06:20] LABS: Albumin 1.9 G/DL (3.4-5.0); Bilirubin,Total 0.7 MG/DL (0.2-1.0); Calcium 8.2 MG/DL (8.5-10.1); Osmolality,Calculated 290.7 MOS/KG (273-304); Potassium 3.4 MMOL/L (3.5-5.1); Total Protein 5.8 G/DL (6.4-8.2)
[2020-12-09 06:23] LABS: Protein/Creatinine Ratio,Urine 7.8 RATIO
[2020-12-09] MEDS: SODIUM BICARB INJ 150 MEQ in DEXTROSE 5% 850 ML IV SCH (07:16)
[2020-12-09] MEDS: ONDANSETRON 4 MG/2 ML VIAL IV PRN ×2 (09:27→17:02)
[2020-12-09] MEDS: amLODIPine 10 MG TABLET PEG SCH (09:28)
[2020-12-09] MEDS: POTASSIUM CHLORIDE 20 MEQ TABLET PO PRN ×2 (09:28→14:06)
[2020-12-09] MEDS: carvediloL 12.5 MG TABLET PEG SCH ×2 (09:28→20:50)
[2020-12-09] MEDS: cefTRIAXone 1,000 MG in SYRINGE 1 EACH IV SCH (11:35)
[2020-12-09] MEDS: PANTOPRAZOLE 40 MG VIAL IV SCH (20:50)
[2020-12-10] MEDS: INSULIN REGULAR 100 UNIT/ML SUBCUT SCH ×5 (00:02→23:58)
[2020-12-10] MEDS: metroNIDAZOLE INJ 500 MG in PREMIX 1 EACH IV SCH ×3 (03:40→21:42)
[2020-12-10 06:57] LABS: Basophils % 0.4 % (0.0-0.8); Eosinophils # 0.2 10*3/uL (0.0-0.87); Eosinophils % 2.5 % (0.00-10.9); Hematocrit 33.4 VOL% (35.7-47.0); Hemoglobin 10.6 GM/DL (12.0-16.0); Immature Granulocytes % 0.3 %; Immature Granulocytes Absolute 0.02 #; Lymphocytes # 1.8 10*3/uL (1.4-4.0); Lymphocytes % 26.9 % (21.3-54.2); Mean Corpuscular HGB Conc 31.7 GM/DL (32-36); Mean Corpuscular Volume 91.8 FL (87-102); Mean Platelet Volume 9.7 FL (9.6-12.0); Monocytes % 8.7 % (1.7-12.7); Neutrophils % 61.2 % (38.7-73.9); Platelet Count 236 T/CUMM (130-400); Red Blood Count 3.64 MC/CUMM (3.8-5.5); Red Cell Distribution Width 15.5 % (9.3-17.3); White Blood Count 6.8 T/CUMM (4-12)
[2020-12-10 07:10] LABS: Calcium 8.9 MG/DL (8.5-10.1); Osmolality,Calculated 288.8 MOS/KG (273-304); Potassium 3.3 MMOL/L (3.5-5.1)
[2020-12-10] MEDS: POTASSIUM CHLORIDE 20 MEQ TABLET PO PRN (09:05)
[2020-12-10] MEDS: carvediloL 12.5 MG TABLET PEG SCH ×2 (09:05→21:42)
[2020-12-10] MEDS: PANTOPRAZOLE 40 MG VIAL IV SCH ×2 (09:05→21:42)
[2020-12-10] MEDS: amLODIPine 10 MG TABLET PEG SCH (09:05)
[2020-12-10] MEDS: cefTRIAXone 1,000 MG in SYRINGE 1 EACH IV SCH (11:26)
[2020-12-11 05:17] LABS: Basophils # 0.1 10*3/uL (0.0-0.2); Basophils % 0.7 % (0.0-0.8); Eosinophils # 0.3 10*3/uL (0.0-0.87); Eosinophils % 3.4 % (0.00-10.9); Hematocrit 28.3 VOL% (35.7-47.0); Hemoglobin 9.3 GM/DL (12.0-16.0); Immature Granulocytes % 0.4 %; Immature Granulocytes Absolute 0.03 #; Lymphocytes # 2.1 10*3/uL (1.4-4.0); Lymphocytes % 27.9 % (21.3-54.2); Mean Corpuscular HGB Conc 32.9 GM/DL (32-36); Mean Platelet Volume 9.7 FL (9.6-12.0); Monocytes % 7.9 % (1.7-12.7); Neutrophils % 59.7 % (38.7-73.9); Platelet Count 238 T/CUMM (130-400); Red Blood Count 3.18 MC/CUMM (3.8-5.5); Red Cell Distribution Width 15.5 % (9.3-17.3); White Blood Count 7.7 T/CUMM (4-12)
[2020-12-11 05:40] LABS: Calcium 8.5 MG/DL (8.5-10.1); Osmolality,Calculated 294.4 MOS/KG (273-304); Potassium 3.1 MMOL/L (3.5-5.1)
[2020-12-11] MEDS: INSULIN REGULAR 100 UNIT/ML SUBCUT SCH ×3 (06:01→20:16)
[2020-12-11] MEDS: POTASSIUM CHLORIDE 20 MEQ TABLET PO PRN ×4 (06:37→12:58)
[2020-12-11] MEDS: carvediloL 12.5 MG TABLET PEG SCH ×2 (08:29→21:18)
[2020-12-11] MEDS: amLODIPine 10 MG TABLET PEG SCH (08:29)
[2020-12-11] MEDS: PANTOPRAZOLE 40 MG VIAL IV SCH ×2 (08:30→21:24)
[2020-12-12] MEDS: INSULIN REGULAR 100 UNIT/ML SUBCUT SCH ×4 (00:24→18:14)
[2020-12-12 05:29] LABS: Basophils % 0.5 % (0.0-0.8); Eosinophils # 0.3 10*3/uL (0.0-0.87); Eosinophils % 3.4 % (0.00-10.9); Hematocrit 29.9 VOL% (35.7-47.0); Hemoglobin 9.8 GM/DL (12.0-16.0); Immature Granulocytes % 0.4 %; Immature Granulocytes Absolute 0.03 #; Lymphocytes % 23.6 % (21.3-54.2); Mean Corpuscular HGB Conc 32.8 GM/DL (32-36); Mean Corpuscular Volume 89.3 FL (87-102); Mean Platelet Volume 9.8 FL (9.6-12.0); Monocytes % 7.6 % (1.7-12.7); Neutrophils % 64.5 % (38.7-73.9); Platelet Count 259 T/CUMM (130-400); Red Blood Count 3.35 MC/CUMM (3.8-5.5); Red Cell Distribution Width 15.6 % (9.3-17.3); White Blood Count 8.3 T/CUMM (4-12)
[2020-12-12 05:49] LABS: Calcium 8.6 MG/DL (8.5-10.1); Osmolality,Calculated 291.4 MOS/KG (273-304); Potassium 3.6 MMOL/L (3.5-5.1)
[2020-12-12] MEDS: PANTOPRAZOLE 40 MG VIAL IV SCH (08:43)
[2020-12-12] MEDS: carvediloL 12.5 MG TABLET PEG SCH ×2 (08:43→20:20)
[2020-12-12] MEDS: amLODIPine 10 MG TABLET PEG SCH (08:43)
[2020-12-12] MEDS: POTASSIUM CHLORIDE 20 MEQ TABLET PO PRN ×2 (08:43→12:13)
[2020-12-13] MEDS: INSULIN REGULAR 100 UNIT/ML SUBCUT SCH ×4 (00:25→17:59)
[2020-12-13 05:40] LABS: Calcium 8.5 MG/DL (8.5-10.1); Osmolality,Calculated 290.5 MOS/KG (273-304); Potassium 3.5 MMOL/L (3.5-5.1)
[2020-12-13] MEDS ORDERED: PANTOPRAZOLE 40 MG TABLET PO SCH (09:00)
[2020-12-13] MEDS: amLODIPine 10 MG TABLET PEG SCH (09:41)
[2020-12-13] MEDS: carvediloL 12.5 MG TABLET PEG SCH (09:41)
[2020-12-13 15:55] VITALS: BP 170/77
== END 2020-12-13 19:24 | disposition home health service (06) | DRG 682 ==
LOC: EDBD → EDUNIT# → N.ED 07:14 → SUATTDRO 10:13 → N.EDINP 10:13 → N.TELEN 16:47
PROVIDERS: ADMIT Internal Medicine; ATTEND Internal Medicine Geriatric Medicine

== ENCOUNTER 2021-02-27 10:48 | Inpatient (IN) ==
[2021-02-27] MEDS ORDERED: SODIUM CHLORIDE 0.9% 1,000 ML IV STA (11:10)
[2021-02-27 11:45] LABS: Basophils % 0.5 % (0.0-0.8); Eosinophils # 0.1 10*3/uL (0.0-0.87); Eosinophils % 0.8 % (0.00-10.9); Hematocrit 34.5 VOL% (35.7-47.0); Hemoglobin 11.5 GM/DL (12.0-16.0); Immature Granulocytes % 0.2 %; Immature Granulocytes Absolute 0.02 #; Lymphocytes # 1.6 10*3/uL (1.4-4.0); Lymphocytes % 19.6 % (21.3-54.2); Mean Corpuscular HGB Conc 33.3 GM/DL (32-36); Mean Corpuscular Volume 89.8 FL (87-102); Mean Platelet Volume 9.2 FL (9.6-12.0); Monocytes % 5.1 % (1.7-12.7); Neutrophils % 73.8 % (38.7-73.9); Platelet Count 312 T/CUMM (130-400); Red Blood Count 3.84 MC/CUMM (3.8-5.5); Red Cell Distribution Width 12.7 % (9.3-17.3); White Blood Count 8.3 T/CUMM (4-12)
[2021-02-27 12:01] LABS: INR 0.9; PT Patient Result 10.6 SECS (10.5-12.0); Partial Thromboplastin Time 25.9 SECS (23.9-33.8)
[2021-02-27 12:14] LABS: Alanine Aminotransferase 19 U/L (13-56); Albumin 3.1 G/DL (3.4-5.0); Alkaline Phosphatase 64 U/L (45-117); Aspartate Amino Transferase 34 U/L (0-37); Blood Urea Nitrogen 29 MG/DL (7-18); Calcium 9.5 MG/DL (8.5-10.1); Carbon Dioxide 29 MMOL/L (21-32); Estimated Glom Filtration Rate 87 ML/MIN; Glucose 145 MG/DL (74-106); Osmolality,Calculated 263.2 MOS/KG (273-304); Potassium 4.3 MMOL/L (3.5-5.1); Sodium 127 MMOL/L (136-145); Total Protein 6.9 G/DL (6.4-8.2)
[2021-02-27 12:49] LABS: Sedimentation Rate-Westergren 91 MM/HR (0-30)
[2021-02-27 13:22] LABS: Bilirubin,Urine Negative (Negative); Blood, Urine Negative (Negative); Glucose,Urine (UA) Negative (Negative); Hyaline Casts,Urine 2 /LPF (0-3); Ketones,Urine Negative (Negative); Mucus,Urine Occasional /LPF (Occasional); Nitrite,Urine Negative (Negative); Protein,Urine 100 MG/DL; RBC,Urine 27 /HPF (0-4); Squamous Epithelial Cell,Urine Occasional /HPF (0-10); Urine Appearance CLOUDY (Clear); Urine Color Yellow (Yellow); Urine Urobilinogen < 2.0 EU/DL (0.2-1.0)
[2021-02-27 13:30] LABS: Barbiturates Screen,Urine Negative (Negative); Benzodiazepines Screen,Urine Negative (Negative); Cannabinoid Screen,Urine Negative (Negative); Opiate Screen,Urine Negative (Negative); Phencyclidine Screen,Urine Negative (Negative)
[2021-02-27] MEDS ORDERED: ACETAMINOPHEN 325 MG TABLET PO PRN (14:06)
[2021-02-27] MEDS ORDERED: ONDANSETRON 4 MG/2 ML VIAL IV PRN (14:06)
[2021-02-27] MEDS ORDERED: GLUCAGON 1 MG VIAL IM PRN (14:06)
[2021-02-27] MEDS ORDERED: DEXTROSE 50% 25 GM/50 ML VIAL IV PRN (14:06)
[2021-02-27] MEDS: ENOXAPARIN 40 MG/0.4 ML SYRINGE SUBCUT SCH (14:19)
[2021-02-27] MEDS: SODIUM CHLORIDE 0.9% 1,000 ML IV SCH (16:37)
[2021-02-27] MEDS: cefTRIAXone 1,000 MG in SODIUM CHLORIDE 0.9% 100 ML IV SCH (16:37)
[2021-02-28 06:25] LABS: Basophils % 0.5 % (0.0-0.8); Eosinophils # 0.1 10*3/uL (0.0-0.87); Eosinophils % 0.7 % (0.00-10.9); Hematocrit 32.1 VOL% (35.7-47.0); Hemoglobin 10.7 GM/DL (12.0-16.0); Immature Granulocytes % 0.5 %; Immature Granulocytes Absolute 0.04 #; Lymphocytes # 0.6 10*3/uL (1.4-4.0); Lymphocytes % 7.8 % (21.3-54.2); Mean Corpuscular HGB Conc 33.3 GM/DL (32-36); Mean Corpuscular Volume 90.9 FL (87-102); Monocytes % 7.8 % (1.7-12.7); Neutrophils % 82.7 % (38.7-73.9); Platelet Count 293 T/CUMM (130-400); Red Blood Count 3.53 MC/CUMM (3.8-5.5); Red Cell Distribution Width 12.7 % (9.3-17.3); White Blood Count 8.1 T/CUMM (4-12)
[2021-02-28 06:49] LABS: Calcium 9.4 MG/DL (8.5-10.1); Osmolality,Calculated 272.5 MOS/KG (273-304); Potassium 3.7 MMOL/L (3.5-5.1); Risk Ratio 3.28
[2021-02-28] MEDS: levETIRAcetam LIQUID 100 MG/ML 30 ML/BOTTLE PO SCH ×2 (10:45→21:43)
[2021-02-28] MEDS: CHOLECALCIFEROL 1,000 UNIT TABLET PEG SCH (10:45)
[2021-02-28] MEDS: CLOPIDOGREL 75 MG TABLET PEG SCH (10:46)
[2021-02-28] MEDS: ASPIRIN CHEW 81 MG TABLET PO SCH (10:46)
[2021-02-28] MEDS: PANTOPRAZOLE 40 MG TABLET PO SCH (10:46)
[2021-02-28] MEDS: amLODIPine 10 MG TABLET PEG SCH (10:46)
[2021-02-28] MEDS: CETIRIZINE 10 MG TABLET PEG SCH (10:46)
[2021-02-28] MEDS: ASCORBIC ACID 500 MG TABLET PEG SCH ×2 (10:46→21:42)
[2021-02-28] MEDS: carvediloL 12.5 MG TABLET PEG SCH ×2 (10:46→21:42)
[2021-02-28] MEDS: MONTELUKAST 10 MG TABLET PEG SCH (10:47)
[2021-02-28] MEDS: SODIUM CHLORIDE 0.9% 1,000 ML IV SCH ×2 (10:47→18:34)
[2021-02-28] MEDS: VANCOMYCIN INJ 1,250 MG in SODIUM CHLORIDE 0.9% 250 ML IV SCH ×2 (11:45→23:19)
[2021-02-28] MEDS ORDERED: TUBERCULIN SKIN TEST 0.1 ML SYRINGE INTRADERM ONE (13:40)
[2021-02-28] MEDS: ENOXAPARIN 40 MG/0.4 ML SYRINGE SUBCUT SCH (15:52)
[2021-02-28] MEDS: cefTRIAXone 1,000 MG in SODIUM CHLORIDE 0.9% 100 ML IV SCH (15:54)
[2021-02-28] MEDS: EZETIMIBE 10 MG TABLET PO SCH (21:42)
[2021-03-01 06:13] LABS: Basophils # 0.1 10*3/uL (0.0-0.2); Basophils % 0.8 % (0.0-0.8); Eosinophils # 0.3 10*3/uL (0.0-0.87); Eosinophils % 5.3 % (0.00-10.9); Hematocrit 28.5 VOL% (35.7-47.0); Hemoglobin 9.3 GM/DL (12.0-16.0); Immature Granulocytes % 0.5 %; Immature Granulocytes Absolute 0.03 #; Lymphocytes # 1.3 10*3/uL (1.4-4.0); Lymphocytes % 22.2 % (21.3-54.2); Mean Corpuscular HGB Conc 32.6 GM/DL (32-36); Mean Corpuscular Volume 93.8 FL (87-102); Mean Platelet Volume 9.3 FL (9.6-12.0); Monocytes % 8.2 % (1.7-12.7); Platelet Count 277 T/CUMM (130-400); Red Blood Count 3.04 MC/CUMM (3.8-5.5); Red Cell Distribution Width 12.7 % (9.3-17.3)
[2021-03-01 06:22] LABS: Calcium 8.9 MG/DL (8.5-10.1); Osmolality,Calculated 280.5 MOS/KG (273-304); Potassium 3.5 MMOL/L (3.5-5.1)
[2021-03-01] MEDS: SODIUM CHLORIDE 0.9% 1,000 ML IV SCH ×2 (07:40→22:45)
[2021-03-01] MEDS: CHOLECALCIFEROL 1,000 UNIT TABLET PEG SCH (10:29)
[2021-03-01] MEDS: levETIRAcetam LIQUID 100 MG/ML 30 ML/BOTTLE PO SCH ×2 (10:29→21:36)
[2021-03-01] MEDS: PANTOPRAZOLE 40 MG TABLET PO SCH (10:29)
[2021-03-01] MEDS: ASPIRIN CHEW 81 MG TABLET PO SCH (10:29)
[2021-03-01] MEDS: carvediloL 12.5 MG TABLET PEG SCH ×3 (10:29→22:44)
[2021-03-01] MEDS: ASCORBIC ACID 500 MG TABLET PEG SCH ×3 (10:29→22:44)
[2021-03-01] MEDS: CLOPIDOGREL 75 MG TABLET PEG SCH (10:29)
[2021-03-01] MEDS: MONTELUKAST 10 MG TABLET PEG SCH (10:30)
[2021-03-01] MEDS: amLODIPine 10 MG TABLET PEG SCH (10:30)
[2021-03-01] MEDS: CETIRIZINE 10 MG TABLET PEG SCH (10:30)
[2021-03-01] MEDS: VANCOMYCIN INJ 1,250 MG in SODIUM CHLORIDE 0.9% 250 ML IV SCH (11:20)
[2021-03-01] MEDS: LACTULOSE 20 GM/30 ML UDCUP PO SCH ×2 (13:25→17:55)
[2021-03-01] MEDS: cefTRIAXone 1,000 MG in SODIUM CHLORIDE 0.9% 100 ML IV SCH (15:42)
[2021-03-01] MEDS: ENOXAPARIN 40 MG/0.4 ML SYRINGE SUBCUT SCH (15:42)
[2021-03-01] MEDS: EZETIMIBE 10 MG TABLET PO SCH ×2 (21:36→22:44)
[2021-03-02] MEDS: LACTULOSE 20 GM/30 ML UDCUP PO SCH ×4 (00:05→17:16)
[2021-03-02 05:03] LABS: Basophils % 0.4 % (0.0-0.8); Eosinophils # 0.3 10*3/uL (0.0-0.87); Hematocrit 29.1 VOL% (35.7-47.0); Hemoglobin 9.6 GM/DL (12.0-16.0); Immature Granulocytes Absolute 0.11 #; Lymphocytes # 0.9 10*3/uL (1.4-4.0); Lymphocytes % 8.2 % (21.3-54.2); Mean Corpuscular Volume 92.7 FL (87-102); Mean Platelet Volume 9.1 FL (9.6-12.0); Neutrophils % 81.4 % (38.7-73.9); Platelet Count 267 T/CUMM (130-400); Red Blood Count 3.14 MC/CUMM (3.8-5.5); Red Cell Distribution Width 13.1 % (9.3-17.3); White Blood Count 10.6 T/CUMM (4-12)
[2021-03-02 05:18] LABS: Osmolality,Calculated 287.1 MOS/KG (273-304); Potassium 3.1 MMOL/L (3.5-5.1)
[2021-03-02] MEDS ORDERED: POTASSIUM CHLORIDE 20 MEQ TABLET PO ONE (07:27)
[2021-03-02] MEDS: carvediloL 12.5 MG TABLET PEG SCH ×2 (10:32→22:39)
[2021-03-02] MEDS: amLODIPine 10 MG TABLET PEG SCH (10:32)
[2021-03-02] MEDS: ASPIRIN CHEW 81 MG TABLET PO SCH (10:32)
[2021-03-02] MEDS: ASCORBIC ACID 500 MG TABLET PEG SCH ×2 (10:33→22:39)
[2021-03-02] MEDS: CETIRIZINE 10 MG TABLET PEG SCH (10:33)
[2021-03-02] MEDS: CHOLECALCIFEROL 1,000 UNIT TABLET PEG SCH (10:33)
[2021-03-02] MEDS: levETIRAcetam LIQUID 100 MG/ML 30 ML/BOTTLE PO SCH ×2 (10:33→22:56)
[2021-03-02] MEDS: CLOPIDOGREL 75 MG TABLET PEG SCH (10:33)
[2021-03-02] MEDS: MONTELUKAST 10 MG TABLET PEG SCH (10:33)
[2021-03-02] MEDS: PANTOPRAZOLE 40 MG TABLET PO SCH (10:33)
[2021-03-02] MEDS: cefTRIAXone 1,000 MG in SODIUM CHLORIDE 0.9% 100 ML IV SCH (15:14)
[2021-03-02] MEDS: ENOXAPARIN 40 MG/0.4 ML SYRINGE SUBCUT SCH (15:14)
[2021-03-02] MEDS: SODIUM CHLORIDE 0.9% 1,000 ML IV SCH ×2 (22:39→23:23)
[2021-03-02] MEDS: EZETIMIBE 10 MG TABLET PO SCH (22:39)
[2021-03-03] MEDS: LACTULOSE 20 GM/30 ML UDCUP PO SCH ×3 (00:19→12:15)
[2021-03-03 05:08] LABS: Basophils % 0.5 % (0.0-0.8); Eosinophils # 0.3 10*3/uL (0.0-0.87); Eosinophils % 3.9 % (0.00-10.9); Hematocrit 29.7 VOL% (35.7-47.0); Hemoglobin 9.2 GM/DL (12.0-16.0); Immature Granulocytes % 0.2 %; Immature Granulocytes Absolute 0.02 #; Lymphocytes # 1.3 10*3/uL (1.4-4.0); Lymphocytes % 15.4 % (21.3-54.2); Mean Corpuscular Volume 96.7 FL (87-102); Mean Platelet Volume 9.2 FL (9.6-12.0); Monocytes % 7.2 % (1.7-12.7); Neutrophils % 72.8 % (38.7-73.9); Platelet Count 255 T/CUMM (130-400); Red Blood Count 3.07 MC/CUMM (3.8-5.5); Red Cell Distribution Width 13.2 % (9.3-17.3); White Blood Count 8.7 T/CUMM (4-12)
[2021-03-03 05:22] LABS: Calcium 9.1 MG/DL (8.5-10.1); Osmolality,Calculated 295.4 MOS/KG (273-304); Potassium 3.5 MMOL/L (3.5-5.1)
[2021-03-03] MEDS: ASCORBIC ACID 500 MG TABLET PEG SCH (09:59)
[2021-03-03] MEDS: ASPIRIN CHEW 81 MG TABLET PO SCH (10:00)
[2021-03-03] MEDS: CHOLECALCIFEROL 1,000 UNIT TABLET PEG SCH (10:00)
[2021-03-03] MEDS: PANTOPRAZOLE 40 MG TABLET PO SCH (10:00)
[2021-03-03] MEDS: carvediloL 12.5 MG TABLET PEG SCH (10:00)
[2021-03-03] MEDS: CLOPIDOGREL 75 MG TABLET PEG SCH (10:00)
[2021-03-03] MEDS: amLODIPine 10 MG TABLET PEG SCH (10:00)
[2021-03-03] MEDS: CETIRIZINE 10 MG TABLET PEG SCH (10:00)
[2021-03-03] MEDS: MONTELUKAST 10 MG TABLET PEG SCH (10:00)
[2021-03-03] MEDS: levETIRAcetam LIQUID 100 MG/ML 30 ML/BOTTLE PO SCH (10:03)
[2021-03-03 11:46] VITALS: BP 146/58
[2021-03-03] MEDS: ENOXAPARIN 40 MG/0.4 ML SYRINGE SUBCUT SCH (14:58)
[2021-03-03] MEDS: SODIUM CHLORIDE 0.9% 1,000 ML IV SCH (16:04)
[2021-03-03] MEDS: cefTRIAXone 1,000 MG in SODIUM CHLORIDE 0.9% 100 ML IV SCH (16:04)
== END 2021-03-03 17:15 | DRG 641 ==
LOC: EDBD → EDUNIT# → N.ED 10:48 → N.EDINP 13:38 → SUATTDRO 13:38 → N.TELES 19:25
PROVIDERS: ADMIT Internal Medicine; ATTEND Internal Medicine Geriatric Medicine

== ENCOUNTER 2022-06-11 16:55 | Inpatient (IN) ==
[2022-06-11] MEDS ORDERED: SODIUM CHLORIDE 0.9% 2,000 ML IV STA (17:18)
[2022-06-11 17:31] LABS: Basophils % 0.2 % (0.0-0.8); Eosinophils % 0.2 % (0.00-10.9); Hematocrit 26.6 VOL% (35.7-47.0); Hemoglobin 8.6 GM/DL (12.0-16.0); Immature Granulocytes % 0.2 %; Immature Granulocytes Absolute 0.01 #; Lymphocytes # 0.9 10*3/uL (1.4-4.0); Lymphocytes % 20.4 % (21.3-54.2); Mean Corpuscular HGB Conc 32.3 GM/DL (32-36); Mean Corpuscular Volume 89.9 FL (87-102); Mean Platelet Volume 10.4 FL (9.6-12.0); Monocytes # 0.2 10*3/uL (0.11-0.8); Monocytes % 4.2 % (1.7-12.7); Neutrophils % 74.8 % (38.7-73.9); Platelet Count 181 T/CUMM (130-400); Red Blood Count 2.96 MC/CUMM (3.8-5.5); Red Cell Distribution Width 18.5 % (9.3-17.3); White Blood Count 4.6 T/CUMM (4-12)
[2022-06-11 17:39] LABS: INR 1.1; PT Patient Result 12.3 SECS (10.1-12.1); Partial Thromboplastin Time 27.3 SECS (23.7-32.9)
[2022-06-11 17:44] LABS: Alanine Aminotransferase 18 U/L (13-56); Alkaline Phosphatase 82 U/L (45-117); Aspartate Amino Transferase 18 U/L (0-37); Bilirubin,Total < 0.39 MG/DL (0.20-1.00); Blood Urea Nitrogen 66 MG/DL (7-18); Calcium 8.5 MG/DL (8.5-10.1); Carbon Dioxide 19 MMOL/L (21-32); Chloride 113 MMOL/L (98-107); Glucose 229 MG/DL (74-106); Osmolality,Calculated 311.8 MOS/KG (273-304); Sodium 144 MMOL/L (136-145); Total Protein 5.6 G/DL (6.4-8.2)
[2022-06-11] MEDS ORDERED: NOREPINEPHRINE 4 MG/4 ML VIAL IV ONE ×2 (18:16→22:46)
[2022-06-11] MEDS ORDERED: NOREPINEPHRINE 16 MG in SODIUM CHLORIDE 0.9% 234 ML IV PRN (18:18)
[2022-06-11 19:14] LABS: Lactic Acid 0.5 MMOL/L (0.4-2.0)
[2022-06-11 19:21] LABS: RBC,Urine 86 /HPF (0-4)
[2022-06-11 19:22] LABS: Bilirubin,Urine Small mg/dL (Negative); Blood, Urine Large mg/dL (Negative); Glucose,Urine (UA) Negative (Negative); Ketones,Urine Trace mg/dL (Negative); Nitrite,Urine Negative (Negative); Protein,Urine 100 mg/dL (Negative); Urine Appearance Cloudy (Clear); Urine Color Yellow (Yellow); Urine Urobilinogen 0.2 eU/dL (<2.0); Urine pH 5.5 (4.5-8.0)
[2022-06-11] MEDS ORDERED: PIPERACILLIN/TAZOBACTAM 3,375 MG in SODIUM CHLORIDE 0.9% 100 ML IV STA (19:35)
[2022-06-11] MEDS: DOPamine 800 MG/250 ML PREMIX IV PRN (20:50)
[2022-06-11] MEDS ORDERED: ALBUTEROL/IPRATROPIUM 3 ML NEB RESP TX STA (21:21)
[2022-06-11] MEDS ORDERED: GLUCAGON 1 MG VIAL IM STA (21:25)
[2022-06-11] MEDS ORDERED: ALBUTEROL 2.5 MG/3 ML NEB RESP TX PRN (21:39)
[2022-06-11] MEDS ORDERED: DEXTROSE 10% 250 ML BAG IV PRN (21:39)
[2022-06-11] MEDS ORDERED: GLUCAGON 1 MG VIAL IM PRN (21:39)
[2022-06-11] MEDS: SODIUM CHLORIDE 0.9% 1,000 ML IV SCH (22:12)
[2022-06-11] MEDS: NOREPINEPHRINE 8 MG in SODIUM CHLORIDE 0.9% 242 ML IV PRN (22:42)
[2022-06-11] MEDS: POTASSIUM CHLORIDE RIDER 10 MEQ/100 ML PREMIX IV SCH (23:59)
[2022-06-11] MEDS: cefTRIAXone 1,000 MG in SODIUM CHLORIDE 0.9% 100 ML IV SCH (23:59)
[2022-06-12] MEDS: POTASSIUM CHLORIDE RIDER 10 MEQ/100 ML PREMIX IV SCH (00:59)
[2022-06-12 03:34] LABS: Basophils % 0.1 % (0.0-0.8); Hematocrit 31.9 VOL% (35.7-47.0); Hemoglobin 10.4 GM/DL (12.0-16.0); Immature Granulocytes % 0.6 %; Immature Granulocytes Absolute 0.04 #; Lymphocytes # 1.1 10*3/uL (1.4-4.0); Lymphocytes % 15.7 % (21.3-54.2); Mean Corpuscular HGB Conc 32.6 GM/DL (32-36); Mean Corpuscular Volume 88.9 FL (87-102); Mean Platelet Volume 9.9 FL (9.6-12.0); Monocytes # 0.3 10*3/uL (0.11-0.8); Monocytes % 4.3 % (1.7-12.7); Neutrophils % 79.3 % (38.7-73.9); Platelet Count 195 T/CUMM (130-400); Red Blood Count 3.59 MC/CUMM (3.8-5.5); Red Cell Distribution Width 18.1 % (9.3-17.3)
[2022-06-12 04:01] LABS: Alanine Aminotransferase 24 U/L (13-56); Albumin 2.1 G/DL (3.4-5.0); Alkaline Phosphatase 99 U/L (45-117); Aspartate Amino Transferase 25 U/L (0-37); Bilirubin,Total < 0.39 MG/DL (0.20-1.00); Blood Urea Nitrogen 61 MG/DL (7-18); Calcium 8.5 MG/DL (8.5-10.1); Carbon Dioxide 16 MMOL/L (21-32); Chloride 114 MMOL/L (98-107); Glucose 234 MG/DL (74-106); Potassium 3.3 MMOL/L (3.5-5.1); Sodium 143 MMOL/L (136-145); Total Protein 6.6 G/DL (6.4-8.2)
[2022-06-12] MEDS ORDERED: SODIUM CHLORIDE 0.9% 500 ML IV ONE (04:08)
[2022-06-12] MEDS: POTASSIUM CHLORIDE RIDER 10 MEQ/100 ML PREMIX IV PRN ×5 (04:50→08:40)
[2022-06-12] MEDS: NOREPINEPHRINE 8 MG in SODIUM CHLORIDE 0.9% 242 ML IV PRN ×2 (05:40→14:42)
[2022-06-12] MEDS: SODIUM CHLORIDE 0.9% 1,000 ML IV SCH ×3 (06:23→23:26)
[2022-06-12] MEDS: INSULIN REGULAR 100 UNIT/ML SUBCUT SCH ×4 (08:41→20:18)
[2022-06-12] MEDS: ASPIRIN CHEW 81 MG TABLET PO SCH (15:58)
[2022-06-12] MEDS: CLOPIDOGREL 75 MG TABLET PO SCH (15:59)
[2022-06-12] MEDS: levETIRAcetam 500 MG TABLET PO SCH ×2 (15:59→20:18)
[2022-06-12] MEDS: DOPamine 800 MG/250 ML PREMIX IV PRN (17:06)
[2022-06-12] MEDS: ZINC OXIDE PASTE 113 GM TUBE TOP SCH (20:18)
[2022-06-12] MEDS ORDERED: cefTRIAXone 1,000 MG in SODIUM CHLORIDE 0.9% 100 ML IV SCH (22:00)
[2022-06-12] MEDS: cefTRIAXone 1,000 MG in SODIUM CHLORIDE 0.9% 100 ML IV SCH (22:15)
[2022-06-13 03:38] LABS: Hematocrit 28.5 VOL% (35.7-47.0); Hemoglobin 9.5 GM/DL (12.0-16.0); Immature Granulocytes % 0.2 %; Immature Granulocytes Absolute 0.01 #; Lymphocytes # 0.7 10*3/uL (1.4-4.0); Lymphocytes % 14.3 % (21.3-54.2); Mean Corpuscular HGB Conc 33.3 GM/DL (32-36); Mean Corpuscular Volume 88.5 FL (87-102); Mean Platelet Volume 9.9 FL (9.6-12.0); Monocytes # 0.1 10*3/uL (0.11-0.8); Monocytes % 2.6 % (1.7-12.7); Neutrophils % 82.9 % (38.7-73.9); Platelet Count 168 T/CUMM (130-400); Red Blood Count 3.22 MC/CUMM (3.8-5.5); Red Cell Distribution Width 18.5 % (9.3-17.3); White Blood Count 4.7 T/CUMM (4-12)
[2022-06-13 03:54] LABS: Calcium 7.2 MG/DL (8.5-10.1); Osmolality,Calculated 308.4 MOS/KG (273-304); Potassium 3.1 MMOL/L (3.5-5.1)
[2022-06-13 04:16] LABS: Band Neutrophils 6 % (0-10); Hypochromia Slight; Lymphocytes 10 % (20-55); Target Cells Slight; Total Cells Counted 100
[2022-06-13 04:17] LABS: Burr Cells Slight; Microcytosis Slight
[2022-06-13] MEDS ORDERED: MAGNESIUM SULF RIDER 4 GM/100 ML PREMIX IV PRN (04:21)
[2022-06-13] MEDS: MAGNESIUM SULF RIDER 2 GM/50 ML PREMIX IV PRN ×2 (05:27→07:14)
[2022-06-13] MEDS: POTASSIUM CHLORIDE RIDER 10 MEQ/100 ML PREMIX IV PRN ×4 (05:28→12:02)
[2022-06-13] MEDS: NOREPINEPHRINE 8 MG in SODIUM CHLORIDE 0.9% 242 ML IV PRN (05:28)
[2022-06-13] MEDS: ONDANSETRON 4 MG/2 ML VIAL IV PRN ×2 (07:15→13:57)
[2022-06-13] MEDS: CLOPIDOGREL 75 MG TABLET PO SCH (08:55)
[2022-06-13] MEDS: levETIRAcetam 500 MG TABLET PO SCH ×2 (08:55→21:27)
[2022-06-13] MEDS: ASPIRIN CHEW 81 MG TABLET PO SCH (08:55)
[2022-06-13] MEDS: SODIUM CHLORIDE 0.9% 1,000 ML IV SCH ×3 (09:05→20:37)
[2022-06-13] MEDS: INSULIN REGULAR 100 UNIT/ML SUBCUT SCH ×3 (10:36→18:20)
[2022-06-13] MEDS: ZINC OXIDE PASTE 113 GM TUBE TOP SCH ×2 (10:37→21:25)
[2022-06-13] MEDS: DOPamine 800 MG/250 ML PREMIX IV PRN (12:48)
[2022-06-13 13:31] LABS: Arterial Base Excess iSTAT -12 MMOL/L (-2.5-2.5); Arterial Bicarbonate iSTAT 12.9 MMOL/L (20-26); Arterial O2 Saturation iSTAT 61 % (95-100); Arterial PCO2 iSTAT 26 MM HG (35-48); Arterial PO2 iSTAT 34 MM HG (80-95); Arterial Total CO2 iSTAT 14 MMO/L (23-27); Arterial pH iSTAT 7.311 (7.35-7.45)
[2022-06-13 13:49] LABS: Arterial Base Excess iSTAT -11 MMOL/L (-2.5-2.5); Arterial O2 Saturation iSTAT 91 % (95-100); Arterial PCO2 iSTAT 24 MM HG (35-48); Arterial PO2 iSTAT 64 MM HG (80-95); Arterial Total CO2 iSTAT 14 MMO/L (23-27); Arterial pH iSTAT 7.336 (7.35-7.45)
[2022-06-13] MEDS ORDERED: cephALEXin 250 MG CAPSULE PO SCH (14:00)
[2022-06-13 14:09] LABS: Calcium 7.5 MG/DL (8.5-10.1); Osmolality,Calculated 302.7 MOS/KG (273-304); Potassium 3.9 MMOL/L (3.5-5.1)
[2022-06-13] MEDS ORDERED: ETOMIDATE 20 MG/10 ML VIAL IV ONE ×2 (14:13→14:16)
[2022-06-13] MEDS ORDERED: SUCCINYLCHOLINE 200 MG/10 ML VIAL ONE (14:14)
[2022-06-13] MEDS ORDERED: SUCCINYLCHOLINE 200 MG/10 ML VIAL IV ONE (14:16)
[2022-06-13] MEDS ORDERED: MIDAZOLAM 100 MG in SODIUM CHLORIDE 0.9% 80 ML IV PRN (14:36)
[2022-06-13 16:20] LABS: Arterial Base Excess iSTAT -8 MMOL/L (-2.5-2.5); Arterial Bicarbonate iSTAT 14.8 MMOL/L (20-26); Arterial PCO2 iSTAT 23 MM HG (35-48); Arterial Total CO2 iSTAT 15 MMO/L (23-27); Arterial pH iSTAT 7.409 (7.35-7.45)
[2022-06-13 16:29] LABS: Arterial Base Excess iSTAT -9 MMOL/L (-2.5-2.5); Arterial Bicarbonate iSTAT 14.6 MMOL/L (20-26); Arterial O2 Saturation iSTAT 100 % (95-100); Arterial PCO2 iSTAT 23 MM HG (35-48); Arterial PO2 iSTAT 344 MM HG (80-95); Arterial Total CO2 iSTAT 15 MMO/L (23-27); Arterial pH iSTAT 7.412 (7.35-7.45)
[2022-06-13 22:49] LABS: INR 1.2; PT Patient Result 12.6 SECS (10.1-12.1); Partial Thromboplastin Time 42.3 SECS (23.7-32.9)
[2022-06-14] MEDS: INSULIN REGULAR 100 UNIT/ML SUBCUT SCH ×5 (00:04→23:53)
[2022-06-14] MEDS: SODIUM CHLORIDE 0.9% 1,000 ML IV SCH ×4 (00:04→17:59)
[2022-06-14] MEDS: NOREPINEPHRINE 8 MG in SODIUM CHLORIDE 0.9% 242 ML IV PRN ×2 (01:16→17:30)
[2022-06-14 03:16] LABS: Basophils % 0.1 % (0.0-0.8); Eosinophils % 0.2 % (0.00-10.9); Hematocrit 24.5 VOL% (35.7-47.0); Hemoglobin 8.4 GM/DL (12.0-16.0); Immature Granulocytes % 0.5 %; Immature Granulocytes Absolute 0.05 #; Lymphocytes # 1.4 10*3/uL (1.4-4.0); Lymphocytes % 13.8 % (21.3-54.2); Mean Corpuscular HGB Conc 34.3 GM/DL (32-36); Mean Corpuscular Volume 84.8 FL (87-102); Mean Platelet Volume 9.2 FL (9.6-12.0); Monocytes # 0.3 10*3/uL (0.11-0.8); Monocytes % 2.5 % (1.7-12.7); NRBC # 0.02 10*3/uL; Neutrophils % 82.9 % (38.7-73.9); Platelet Count 133 T/CUMM (130-400); Red Blood Count 2.89 MC/CUMM (3.8-5.5); White Blood Count 9.9 T/CUMM (4-12)
[2022-06-14 03:31] LABS: Calcium 6.8 MG/DL (8.5-10.1); Osmolality,Calculated 307.3 MOS/KG (273-304); Potassium 3.5 MMOL/L (3.5-5.1)
[2022-06-14 03:47] LABS: Arterial Base Excess iSTAT -10 MMOL/L (-2.5-2.5); Arterial Bicarbonate iSTAT 12.4 MMOL/L (20-26); Arterial O2 Saturation iSTAT 100 % (95-100); Arterial PCO2 iSTAT 17 MM HG (35-48); Arterial PO2 iSTAT 147 MM HG (80-95); Arterial Total CO2 iSTAT 13 MMO/L (23-27); Arterial pH iSTAT 7.481 (7.35-7.45)
[2022-06-14 03:55] LABS: Band Neutrophils 6 % (0-10); Eosinophils 1 % (0-10); Hypochromia Slight; Lymphocytes 9 % (20-55); Total Cells Counted 100
[2022-06-14 03:56] LABS: Acanthocytes Few; Burr Cells Slight; Microcytosis 1+
[2022-06-14] MEDS ORDERED: SODIUM BICARBONATE 50 MEQ/50 ML VIAL IV ONE (03:56)
[2022-06-14 03:57] LABS: Platelet Estimate Adequate
[2022-06-14] MEDS: MEROPENEM 500 MG in SODIUM CHLORIDE 0.9% 100 ML IV SCH ×3 (09:31→20:31)
[2022-06-14] MEDS: DOPamine 800 MG/250 ML PREMIX IV PRN (09:31)
[2022-06-14] MEDS: levETIRAcetam 500 MG TABLET PO SCH ×2 (09:32→20:32)
[2022-06-14] MEDS: CLOPIDOGREL 75 MG TABLET PO SCH (09:32)
[2022-06-14] MEDS: ASPIRIN CHEW 81 MG TABLET PO SCH (09:32)
[2022-06-14] MEDS: ZINC OXIDE PASTE 113 GM TUBE TOP SCH ×2 (09:32→20:47)
[2022-06-15] MEDS: SODIUM CHLORIDE 0.9% 1,000 ML IV SCH ×2 (01:48→10:55)
[2022-06-15] MEDS: NOREPINEPHRINE 8 MG in SODIUM CHLORIDE 0.9% 242 ML IV PRN ×3 (02:30→22:03)
[2022-06-15] MEDS: MEROPENEM 500 MG in SODIUM CHLORIDE 0.9% 100 ML IV SCH ×4 (03:14→20:26)
[2022-06-15 04:16] LABS: Basophils % 0.2 % (0.0-0.8); Eosinophils % 0.3 % (0.00-10.9); Hemoglobin 7.9 GM/DL (12.0-16.0); Immature Granulocytes % 7.4 %; Immature Granulocytes Absolute 0.88 #; Lymphocytes # 1.4 10*3/uL (1.4-4.0); Lymphocytes % 12.2 % (21.3-54.2); Mean Corpuscular HGB Conc 34.3 GM/DL (32-36); Mean Corpuscular Volume 84.6 FL (87-102); Mean Platelet Volume 10.3 FL (9.6-12.0); Monocytes # 0.3 10*3/uL (0.11-0.8); Monocytes % 2.4 % (1.7-12.7); NRBC # 0.04 10*3/uL; Neutrophils % 77.5 % (38.7-73.9); Platelet Count 122 T/CUMM (130-400); Red Blood Count 2.72 MC/CUMM (3.8-5.5); Red Cell Distribution Width 18.6 % (9.3-17.3); White Blood Count 11.8 T/CUMM (4-12)
[2022-06-15 04:36] LABS: Arterial Base Excess iSTAT -12 MMOL/L (-2.5-2.5); Arterial Bicarbonate iSTAT 13.1 MMOL/L (20-26); Arterial O2 Saturation iSTAT 98 % (95-100); Arterial PCO2 iSTAT 25 MM HG (35-48); Arterial PO2 iSTAT 115 MM HG (80-95); Arterial Total CO2 iSTAT 14 MMO/L (23-27); Arterial pH iSTAT 7.332 (7.35-7.45)
[2022-06-15 04:39] LABS: Calcium 6.7 MG/DL (8.5-10.1); Potassium 3.4 MMOL/L (3.5-5.1)
[2022-06-15 04:44] LABS: Burr Cells Slight; Eosinophils 1 % (0-10); Hypochromia Slight; Lymphocytes 8 % (20-55); Microcytosis Slight; Total Cells Counted 100
[2022-06-15] MEDS: INSULIN REGULAR 100 UNIT/ML SUBCUT SCH ×3 (06:02→18:31)
[2022-06-15] MEDS: DOPamine 800 MG/250 ML PREMIX IV PRN (06:48)
[2022-06-15] MEDS: CLOPIDOGREL 75 MG TABLET PO SCH (08:30)
[2022-06-15] MEDS: levETIRAcetam 500 MG TABLET PO SCH ×2 (08:31→20:26)
[2022-06-15] MEDS: ASPIRIN CHEW 81 MG TABLET PO SCH (08:31)
[2022-06-15 10:55] LABS: ABG Base Excess -10.7 MMOL/L (-2.5-2.5); ABG HCO3 15.9 MMOL/L (20-26); ABG Oxygen Saturation 98.1 % (95-100); ABG PCO2 24.8 MM HG (35-48); ABG PH 7.352 (7.35-7.45); ABG TCO2 12.7 MMOL/L (23-27)
[2022-06-15] MEDS ORDERED: SODIUM CHLORIDE 0.45% 500 ML IV ONE ×2 (11:09→14:22)
[2022-06-15] MEDS: ZINC OXIDE PASTE 113 GM TUBE TOP SCH ×2 (11:45→20:26)
[2022-06-15] MEDS: SODIUM BICARB INJ 100 MEQ in STERILE WATER INJ 1,000 ML IV SCH ×2 (12:34→23:39)
[2022-06-15] MEDS: ENOXAPARIN 40 MG/0.4 ML SYRINGE SUBCUT SCH (14:43)
[2022-06-15] MEDS: EZETIMIBE 10 MG TABLET PO SCH (20:26)
[2022-06-15] MEDS: FAMOTIDINE 8 MG/ML 50 ML/BOTTLE PER TUBE SCH (20:27)
[2022-06-16] MEDS: INSULIN REGULAR 100 UNIT/ML SUBCUT SCH ×5 (00:05→23:58)
[2022-06-16] MEDS: MEROPENEM 500 MG in SODIUM CHLORIDE 0.9% 100 ML IV SCH ×4 (03:40→20:26)
[2022-06-16 04:19] LABS: ABG Base Excess -7.2 MMOL/L (-2.5-2.5); ABG HCO3 18.5 MMOL/L (20-26); ABG Oxygen Saturation 98.5 % (95-100); ABG PCO2 25.9 MM HG (35-48); ABG PH 7.414 (7.35-7.45); ABG TCO2 15.7 MMOL/L (23-27)
[2022-06-16 04:22] LABS: Basophils % 0.2 % (0.0-0.8); Eosinophils # 0.1 10*3/uL (0.0-0.87); Eosinophils % 1.4 % (0.00-10.9); Hemoglobin 6.5 GM/DL (12.0-16.0); Immature Granulocytes % 16.9 %; Immature Granulocytes Absolute 1.72 #; Lymphocytes # 1.7 10*3/uL (1.4-4.0); Lymphocytes % 16.3 % (21.3-54.2); Mean Corpuscular HGB Conc 34.2 GM/DL (32-36); Mean Corpuscular Volume 84.8 FL (87-102); Mean Platelet Volume 10.8 FL (9.6-12.0); Monocytes # 0.4 10*3/uL (0.11-0.8); Monocytes % 3.7 % (1.7-12.7); NRBC # 0.03 10*3/uL; Neutrophils % 61.5 % (38.7-73.9); Platelet Count 99 T/CUMM (130-400); Red Blood Count 2.24 MC/CUMM (3.8-5.5); Red Cell Distribution Width 19.2 % (9.3-17.3); White Blood Count 10.2 T/CUMM (4-12)
[2022-06-16 04:39] LABS: Calcium 6.4 MG/DL (8.5-10.1); Osmolality,Calculated 298.7 MOS/KG (273-304); Potassium 3.2 MMOL/L (3.5-5.1)
[2022-06-16 04:44] LABS: Band Neutrophils 3 % (0-10); Eosinophils 4 % (0-10); Lymphocytes 5 % (20-55); Total Cells Counted 100
[2022-06-16 04:45] LABS: Hypochromia Slight; Microcytosis Slight
[2022-06-16 04:46] LABS: Ovalocytes Slight; Platelet Estimate Decreased; Target Cells Slight
[2022-06-16] MEDS ORDERED: SODIUM CHLORIDE 0.9% 1,000 ML IV PRN (04:58)
[2022-06-16] MEDS: POTASSIUM CHLORIDE RIDER 10 MEQ/100 ML PREMIX IV PRN ×5 (05:46→19:21)
[2022-06-16] MEDS: NOREPINEPHRINE 8 MG in SODIUM CHLORIDE 0.9% 242 ML IV PRN (06:30)
[2022-06-16] MEDS: ZINC OXIDE PASTE 113 GM TUBE TOP SCH ×2 (09:19→20:26)
[2022-06-16] MEDS: ENOXAPARIN 40 MG/0.4 ML SYRINGE SUBCUT SCH (09:33)
[2022-06-16] MEDS: CLOPIDOGREL 75 MG TABLET PO SCH (09:36)
[2022-06-16] MEDS: FAMOTIDINE 8 MG/ML 50 ML/BOTTLE PER TUBE SCH ×2 (09:37→20:26)
[2022-06-16] MEDS: ASPIRIN CHEW 81 MG TABLET PO SCH (09:37)
[2022-06-16] MEDS: levETIRAcetam 500 MG TABLET PO SCH ×2 (09:37→20:25)
[2022-06-16 10:01] LABS: Alanine Aminotransferase 17 U/L (13-56); Albumin 1.2 G/DL (3.4-5.0); Alkaline Phosphatase 118 U/L (45-117); Aspartate Amino Transferase 23 U/L (0-37); Bilirubin,Indirect 0.3 MG/DL (0.0-1.0); Bilirubin,Total < 0.39 MG/DL (0.20-1.00); Total Protein 4.2 G/DL (6.4-8.2)
[2022-06-16] MEDS: SODIUM BICARB INJ 100 MEQ in STERILE WATER INJ 1,000 ML IV SCH (10:42)
[2022-06-16] MEDS ORDERED: POTASSIUM PHOSPHATE 30 MMOL in SODIUM CHLORIDE 0.9% 250 ML IV ONE (14:30)
[2022-06-16 15:17] LABS: Hematocrit 30.6 VOL% (35.7-47.0); Hemoglobin 10.4 GM/DL (12.0-16.0)
[2022-06-16] MEDS: EZETIMIBE 10 MG TABLET PO SCH (20:26)
[2022-06-17] MEDS: SODIUM BICARB INJ 100 MEQ in STERILE WATER INJ 1,000 ML IV SCH ×2 (01:14→16:33)
[2022-06-17] MEDS: MEROPENEM 500 MG in SODIUM CHLORIDE 0.9% 100 ML IV SCH ×4 (03:59→21:22)
[2022-06-17 04:00] LABS: Basophils % 0.1 % (0.0-0.8); Eosinophils # 0.1 10*3/uL (0.0-0.87); Eosinophils % 1.8 % (0.00-10.9); Hematocrit 30.9 VOL% (35.7-47.0); Hemoglobin 10.8 GM/DL (12.0-16.0); Immature Granulocytes % 0.9 %; Immature Granulocytes Absolute 0.06 #; Lymphocytes # 1.3 10*3/uL (1.4-4.0); Lymphocytes % 18.9 % (21.3-54.2); Mean Corpuscular Volume 81.3 FL (87-102); Mean Platelet Volume 10.8 FL (9.6-12.0); Monocytes # 0.4 10*3/uL (0.11-0.8); Monocytes % 5.5 % (1.7-12.7); NRBC # 0.02 10*3/uL; Neutrophils % 72.8 % (38.7-73.9); Platelet Count 67 T/CUMM (130-400); Red Cell Distribution Width 16.5 % (9.3-17.3); White Blood Count 6.8 T/CUMM (4-12)
[2022-06-17 04:02] LABS: ABG Base Excess -5.4 MMOL/L (-2.5-2.5); ABG PH 7.447 (7.35-7.45); ABG TCO2 15.5 MMOL/L (23-27)
[2022-06-17 04:12] LABS: Calcium 6.3 MG/DL (8.5-10.1); Osmolality,Calculated 293.1 MOS/KG (273-304); Potassium 3.9 MMOL/L (3.5-5.1)
[2022-06-17 04:22] LABS: Eosinophils 3 % (0-10); Lymphocytes 13 % (20-55); Platelet Estimate Decreased; Total Cells Counted 100
[2022-06-17 04:23] LABS: Hypochromia Slight; Microcytosis Slight
[2022-06-17] MEDS: INSULIN REGULAR 100 UNIT/ML SUBCUT SCH ×3 (06:30→18:05)
[2022-06-17] MEDS: ZINC OXIDE PASTE 113 GM TUBE TOP SCH ×2 (09:04→21:23)
[2022-06-17] MEDS: FAMOTIDINE 8 MG/ML 50 ML/BOTTLE PER TUBE SCH ×2 (09:20→21:22)
[2022-06-17] MEDS: levETIRAcetam 500 MG TABLET PO SCH ×2 (09:20→21:22)
[2022-06-17] MEDS ORDERED: MORPHINE 2 MG/1 ML SYRINGE IV ONE (10:00)
[2022-06-17] MEDS ORDERED: FUROSEMIDE 40 MG/4 ML VIAL IV ONE (10:03)
[2022-06-17] MEDS: ALBUMIN 5% 25 GM/500 ML VIAL IV SCH (16:32)
[2022-06-17] MEDS: EZETIMIBE 10 MG TABLET PO SCH (21:22)
[2022-06-18] MEDS: INSULIN REGULAR 100 UNIT/ML SUBCUT SCH ×3 (00:16→11:25)
[2022-06-18] MEDS: ALBUMIN 5% 25 GM/500 ML VIAL IV SCH ×2 (00:16→06:00)
[2022-06-18] MEDS: MEROPENEM 500 MG in SODIUM CHLORIDE 0.9% 100 ML IV SCH ×2 (02:24→08:40)
[2022-06-18 03:29] LABS: ABG Base Excess -3.4 MMOL/L (-2.5-2.5); ABG HCO3 21.6 MMOL/L (20-26); ABG Oxygen Saturation 98.7 % (95-100); ABG PH 7.423 (7.35-7.45); ABG TCO2 18.5 MMOL/L (23-27)
[2022-06-18 03:34] LABS: Basophils % 0.3 % (0.0-0.8); Eosinophils # 0.1 10*3/uL (0.0-0.87); Eosinophils % 1.7 % (0.00-10.9); Hematocrit 26.5 VOL% (35.7-47.0); Hemoglobin 9.2 GM/DL (12.0-16.0); Immature Granulocytes % 8.5 %; Immature Granulocytes Absolute 0.49 #; Lymphocytes % 16.9 % (21.3-54.2); Mean Corpuscular HGB Conc 34.7 GM/DL (32-36); Mean Platelet Volume 11.7 FL (9.6-12.0); Monocytes # 0.4 10*3/uL (0.11-0.8); Monocytes % 6.2 % (1.7-12.7); Neutrophils % 66.4 % (38.7-73.9); Red Blood Count 3.27 MC/CUMM (3.8-5.5); Red Cell Distribution Width 16.5 % (9.3-17.3); White Blood Count 5.8 T/CUMM (4-12)
[2022-06-18 03:37] LABS: Platelet Count 56 T/CUMM (130-400)
[2022-06-18 03:52] LABS: Osmolality,Calculated 292.4 MOS/KG (273-304)
[2022-06-18 03:53] LABS: Band Neutrophils 3 % (0-10); Eosinophils 2 % (0-10); Lymphocytes 13 % (20-55); Nucleated Red Blood Cells 1 /100 WBC (0-5); Platelet Estimate Decreased; Total Cells Counted 100
[2022-06-18 03:54] LABS: Hypochromia Slight; Microcytosis Slight
[2022-06-18] MEDS: POTASSIUM CHLORIDE RIDER 10 MEQ/100 ML PREMIX IV PRN (05:39)
[2022-06-18] MEDS: SODIUM BICARB INJ 100 MEQ in STERILE WATER INJ 1,000 ML IV SCH (05:49)
[2022-06-18] MEDS ORDERED: FUROSEMIDE 40 MG/4 ML VIAL IV ONE (07:59)
[2022-06-18] MEDS: POTASSIUM CHLORIDE RIDER 20 MEQ/100 ML PREMIX IV PRN ×2 (08:40→09:40)
[2022-06-18] MEDS: FAMOTIDINE 8 MG/ML 50 ML/BOTTLE PER TUBE SCH (08:45)
[2022-06-18] MEDS: levETIRAcetam 500 MG TABLET PO SCH (08:45)
[2022-06-18] MEDS ORDERED: ALBUMIN 25% 25 GM/100 ML VIAL IV SCH (09:00)
[2022-06-18] MEDS: ZINC OXIDE PASTE 113 GM TUBE TOP SCH (09:35)
[2022-06-18] MEDS ORDERED: MORPHINE 2 MG/1 ML SYRINGE IV PRN (09:49)
[2022-06-18] MEDS ORDERED: CEFEPIME 1,000 MG in SODIUM CHLORIDE 0.9% 100 ML IV SCH (13:00)
[2022-06-18] MEDS ORDERED: CEFEPIME 2,000 MG in SODIUM CHLORIDE 0.9% 100 ML IV SCH (14:00)
[2022-06-18 17:47] VITALS: BP 150/89
== END 2022-06-18 16:15 | DRG 917 ==
LOC: N.ED 16:55 → SUATTDRO 21:39 → N.EDINP 21:39 → N.ICU 22:36
PROVIDERS: ADMIT Internal Medicine; ATTEND Family Medicine